=== PATIENT | male | born 1955 | race Caucasian/White ===

== ENCOUNTER 2020-03-01 08:52 | Outpatient (CLI) | payer BC, SELFPAY ==
[2020-03-01 09:21] LABS: Alanine Aminotransferase 23 U/L (4-50); Aspartate Amino Transferase 27 U/L (17-59); Cholesterol 186 mg/dL (0-200); HDL Direct 50 mg/dL; Triglycerides 101 mg/dL (<150)
[2020-03-01 09:37] LABS: LDL Cholesterol Direct 109 mg/dL
== END 2020-03-01 08:53 | disposition home or self-care (01) ==
PROVIDERS: PCP Internal Medicine; Visit Provider Internal Medicine Cardiovascular Disease
DX: E78.5 Hyperlipidemia, unspecified (principal)
CPT/HCPCS: 36415; 80061; 84450; 84460

== ENCOUNTER 2020-09-21 10:31 | Outpatient (CLI) | payer MEDICARE, BC, SELFPAY ==
--- NOTE | ~2020-09-21 | CT_ITS ---
EXAMINATION: CT lung screening DATE: 09/21/2020 11:50 INDICATION: Yearly screening examination. TECHNIQUE: Computed tomography (CT) of the chest was performed without intravenous contrast. The dose -length product was 145.35 mGy-cm. Automated exposure control and iterative reconstruction technique were employed. COMPARISON: CT dated 06/06/2019 FINDINGS: No thoracic lymphadenopathy. There is atherosclerosis of the coronary arteries. Heart size normal. No significant pleural or pericardial effusion. There is gynecomastia. There is a 2 mm pleura l-based right upper lobe nodule, image 41. There is a 2 mm calcified right upper lobe nodule. There i s a 2-3 mm pleural-based right middle lobe nodule, image 73, unchanged. There are calcified nodules i n the right lower lobe and left lower lobe. There is dependent atelectasis/scarring. No endobronchial lesions. No pneumothorax. Mild thoracic spondylosis. Chronic superior endplate compression deformity of T3. IMPRESSION: 1. Lung-RADS category 2: Benign appearance or behavior. Continue annual screening with noncontrast lo w-dose chest CT in 12 months. Reviewed, dictated and finalized at location A. OOD FISHERMAN IMPRESSION: 1. Lung-RADS category 2: Benign appearance or behavior. Continue annual screeni ng with noncontrast low-dose chest CT in 12 months.
== END 2020-09-21 10:32 | disposition home or self-care (01) ==
PROVIDERS: PCP Internal Medicine; Visit Provider Internal Medicine
DX: Z12.2 Encounter for screening for malignant neoplasm of respiratory organs (principal); Z87.891 Personal history of nicotine dependence
CPT/HCPCS: 71271

== ENCOUNTER → 2020-12-04 10:35 | Outpatient (CLI) | payer MEDICARE, BC, SELFPAY ==
--- NOTE | ~2020-12-04 | US_ITS ---
EXAMINATION: US aorta [facility] DATE: 12/04/2020 10:55 INDICATION: Abdominal aortic aneurysm screening. TECHNIQUE: Grayscale, color Doppler, and pulsed Doppler images of the aorta and common iliac arteries were obtained. COMPARISON: CT lumbar spine 03/29/2017 FINDINGS: The aorta is normal in caliber. The right common iliac artery is normal in caliber. The left common i liac artery is normal in caliber. IMPRESSION: 1. No abdominal aortic aneurysm. Reviewed, dictated and finalized at location B.
--- NOTE | ~2020-12-04 | XR_ITS ---
EXAMINATION: XR knee LT 3V DATE: 12/04/2020 11:12 INDICATION: Unspecified osteoarthritis, unspecified site. TECHNIQUE: 3 views of left knee were obtained. COMPARISON: None. FINDINGS: There is a total left knee arthroplasty with patellar resurfacing. Tibia demonstrates 13 de grees posterior angulation with respect to tibial component. There is 2 mm lucency adjacent to the an terior aspect of the femoral component and anterior aspect of the tibial component.. There is a small knee joint effusion. IMPRESSION: 1. Total left knee arthroplasty with lucencies adjacent to the anterior aspects of the femoral and ti bial components, consistent with loosening versus infection. Comparison with postoperative radiograph s is recommended. 2. Small knee joint effusion. Reviewed, dictated and finalized at location B. IMPRESSION: 1. Total left knee arthroplasty with lucencies adjacent to the anterior aspects of the femoral and tibial components, consistent with loosening versus infecti on. Comparison with postoperative radiographs is recommended. 2. Small knee joint effusion.
--- NOTE | ~2020-12-04 | XR_ITS ---
EXAMINATION: XR knee RT 3V DATE: 12/04/2020 11:12 INDICATION: Unspecified osteoarthritis, unspecified site. TECHNIQUE: 3 views of right knee were obtained. COMPARISON: None. FINDINGS: There is a total right knee arthroplasty with patellar resurfacing. Tibia demonstrate 9 deg donn posterior angulation with respect to tibial component. There is 2 mm lucency adjacent to the ant erior aspect of the femoral component and adjacent to the patellar component. No fracture. There is a small knee joint effusion. There are loose bodies in the knee joint. IMPRESSION: 1. Total right knee arthroplasty with areas of lucency adjacent to the anterior aspect of the femoral component and adjacent to the patellar component, consistent with loosening versus infection. Compar miriam with postoperative radiographs is recommended. 2. Small knee joint effusion with loose bodies. Reviewed, dictated and finalized at location B. IMPRESSION: 1. Total right knee arthroplasty with areas of lucency adjacent to the anterior aspect of the femoral component and adjacent to the patellar component, consis tent with loosening versus infection. Comparison with postoperative radiographs is recommended. 2. Small knee joint effusion with loose bodies.
== END ==
PROVIDERS: PCP Internal Medicine; Visit Provider Internal Medicine
DX: M19.90 Unspecified osteoarthritis, unspecified site (principal); M23.41 Loose body in knee, right knee; M25.461 Effusion, right knee; M25.462 Effusion, left knee
CPT/HCPCS: 73562; 76706

== ENCOUNTER 2021-07-26 03:28 | Day surgery (SDC) | payer MEDICARE, BC, SELFPAY ==
[2021-07-25 16:16] VITALS: BMI 31.9
[2021-07-26] VITALS (16 sets, daily range): BP systolic 114–162; BP diastolic 50–67; PULSE 57–73; RESP 14–18; TEMP 36.5–37; O2SAT 95–99; BMI 32.9
[2021-07-26 08:14] LABS: Basophils Absolute Auto 0.1 K/mm3 (0.0-0.1); Basophils Percent Auto 0.5 % (0.2-1.2); Eosinophils Absolute Auto 0.8 K/mm3 (0-0.3); Eosinophils Percent Auto 7.3 % (0-4.4); Hematocrit 35.4 % (42.0-52.0); Hemoglobin 12.3 g/dL (14.0-18.0); Immature Granulocyte Absolute 0.05 K/mm3 (0.00-0.031); Immature Granulocyte Percent A 0.4 % (0-0.5); Lymphocytes Absolute Auto 2.71 K/mm3 (0.9-3.2); Mean Corpuscular HGB Conc 34.7 g/dl (32-36); Mean Corpuscular Hemoglobin 32.1 pg (26-34); Mean Corpuscular Volume 92.4 fl (80-100); Mean Platelet Volume 9.1 fl (7.4-10.4); Monocytes Absolute Auto 1.1 K/mm3 (0.1-0.6); Monocytes Percent Auto 9.4 % (2.6-8.5); Neutrophils Absolute Auto 6.6 K/mm3 (1.3-6.7); Neutrophils Percent Auto 58.4 % (45.5-73.1); Platelet Count Result 374 k/mm3 (150-375); Red Blood Count 3.83 M/mm3 (4.6-6.20); Red Cell Distribution Width 12.8 % (11.5-14.5); White Blood Count 11.3 K/mm3 (4.5-10.0)
[2021-07-26 08:22] LABS: Anion Gap 9 mmol/L (8-16); Blood Urea Nitrogen 24 mg/dL (9-20); Calcium 9.4 mg/dL (8.4-10.2); Carbon Dioxide 24 mmol/L (22-30); Chloride 99 mmol/L (98-107); Estimated CRCL calculation 76 ml/min; Estimated Glomerular Filt Rate > 60; Glucose 108 mg/dL (65-110); Potassium 4.5 mmol/L (3.4-5.0); Sodium 132 mmol/L (137-145)
[2021-07-26 08:23] LABS: INR 0.8; Prothrombin Time 11.5 Seconds (11.1-14.7)
--- NOTE | 2021-07-26 09:21 | WPDMODSED ---
Moderate Sedation Note-Pt Data Patient Data Diagnosis: History of mild coronary artery disease being treated medically recent episode of nocturnal chest pain electrocardiographically abnormal Lexiscan stress test Present Complaint: this is a 66-year-old man with coronary disease with [id number] lesion in a diagonal branch of the LAD identified about 13 years ago. He has been treated medically. Recently there was an episode of nocturnal chest pain that has raise concern. He is having no exertional chest pain. A nuclear Lexiscan stress test was done as an outpatient which was remarkable for some ST segment depression but there were no scintigraphic abnormalities. Procedure to be performed/Plan: Left heart catheterization Allergies Allergy/AdvReac Type Severity Reaction Status Date / Time No Known Allergies Allergy Verified 07/26/21 08:25 NKDA Allergy Mild unkown Uncoded 07/26/21 08:25 Home Medications Medication Instructions Recorded Confirmed Type aspirin 81 mg tablet,delayed 81 mg PO DAILY 11/02/19 07/25/21 History release atorvastatin 40 mg tablet 40 mg PO DAILY #90 tablet 04/24/21 07/25/21 Rx verapamil 240 mg 24 hr 240 mg PO DAILY #90 cap 05/08/21 07/25/21 Rx capsule,extended release lisinopril 40 mg tablet See Rx Instructions .ROUTE 07/10/21 07/25/21 Rx .COMPLEX #90 tablet cholecalciferol (vitamin D3) 50 50 mcg PO DAILY 07/15/21 07/25/21 History mcg (2,000 unit) capsule glucosamine sulfate 500 mg tablet 500 mg PO DAILY 07/15/21 07/25/21 History hydrochlorothiazide See Rx Instructions .ROUTE .COMPLEX 07/25/21 07/25/21 History Current Medications: Active Medications Sodium Chloride (Normal Saline Iv) 500 mls @ 100 mls/hr IV CONT .Q5H CINDY Sedation/Anesthesia: No previous sedation/anesthesia problems (including family history). [facility] Surgical History Surgical History (Updated 05/21/21 @ 11:31 by Tamara Villalpando CMA) History of bilateral knee replacement Social History Social History (Updated 07/15/21 @ 10:12 by Nettie Yanez CNA) Years smoked: 40 Smoking status: Current some day smoker Tobacco type: cigars Second hand tobacco smoke exposure: No Additional smoking assessment comments: Patient no longer smoking cigarettes. Patient reports smoking 1-5 week Alcohol intake: current Drinks per week: 8 Alcohol use details: 4-5 days per week Substance use: never Substance use type: does not use Living arrangements: with family Spiritual care concerns: No Mod Sed Physical Exam Physical Exam Pre Procedural Exam: Normal: Appearance, Neck, Throat, Airway, Lungs, Heart Size, Heart Rate, Heart Rhythm, Neuro Exam and Extremities Hours since solid foods: 12 Hours since liquid intake: 12 Mallampati Classification: class II Internal Medicine - PN: Obj Da Vital Signs Vital Signs: Vital Signs - 24 hr 07/26/21 08:00 Temperature 36.5 C Pulse Rate 60 Respiratory Rate 16 Blood Pressure 139/59 L Pulse Oximetry 95 Meds/Results Medications: Active Medications Generic Name Dose Route Start Last Admin Trade Name Freq PRN Reason Stop Dose Admin Sodium Chloride 500 mls @ 100 mls/hr 07/25/21 16:05 Normal Saline Iv IV CONT .Q5H CINDY Labs CBC & Chem 7: 07/26/21 07:57 07/26/21 07:57 Labs: Laboratory Results - last 24 hr 07/26/21 07/26/21 07/26/21 07:57 07:57 07:57 WBC 11.3 H RBC 3.83 L Hgb 12.3 L Hct 35.4 L MCV 92.4 MCH 32.1 MCHC 34.7 RDW 12.8 Plt Count 374 MPV 9.1 Immature Gran % (Auto) 0.4 Neut % (Auto) 58.4 Lymph % (Auto) 24.0 [place] % (Auto) 9.4 H Eos % (Auto) 7.3 H Baso % (Auto) 0.5 Lymph # (Auto) 2.71 [place] # (Auto) 1.1 H Eos # (Auto) 0.8 H Baso # (Auto) 0.1 Abs Immat Gran (auto) 0.05 H Absolute Neuts (auto) 6.6 Absolute Nucleated RBC 0.0 Nucleated RBC % 0.0 PT 11.5 INR 0.8 Sodium 132 L Potassium 4.5 Chlor
--- NOTE | 2021-07-26 10:08 | WPDCARDPROC ---
Cardiac Cath Procedure Note Date of procedure:: 07/26/21 Performing physician:: Swapnil Sanchez MD Indication:: Coronary artery disease with abnormal stress test Brief clinical history:: this is a 66-year-old man known to have angiographically modest coronary disease that has been treated medically. Recently he had an episode of nonexertional chest pain occurring in a nocturnal fashion. He was seen in the office after this and a nuclear stress test was done which demonstrated ECG changes with the Lexiscan injection but apparently normal appearing perfusion images. In this setting a follow-up angiogram has been recommended. Procedure Procedure performed:: Left ventriculogram coronary angiogram Sedation/Medication given:: fentanyl 50 mg Versed 2 mg case start time 932 case end time 10:00 a.m. sedation provided by Neelima Rosen RN, trained observer Access site:: right femoral artery Estimated blood loss:: 15 cc Procedure note:: patient was brought to the cardiac catheterization lab postabsorptive state where the right femoral triangle was prepped draped usual fashion. Anesthesia was provided with 1% lidocaine infiltrated locally. Using the modified Seldinger technique a 5 Martiniquais sheath was placed into the femoral artery after this left heart catheterization was carried out. A 5 Martiniquais angled pigtail catheter was used to measure left-sided hemodynamics and to inject LV g in the ER AO projection. After this I used a 5 Martiniquais FL4 catheter to attempt engagement of the left coronary artery. This was unsuccessful I then used a 5 Martiniquais FL 3.5 which successfully engaged the vessel for angiography after this I engaged and injected the right coronary artery using a standard 5 Martiniquais JR4 catheter. The cineangiograms were then reviewed the case was terminated. Patient had the sheath removed in the holding area he left the optical laboratory manager with no complications and no evidence of a groin hematoma. Findings:: Hemodynamics: the central aortic pressure was 126 over 54 left ventricle 126/2 end-diastolic pressure 12 the across the aortic valve. Left ventricle: The LV is normal in size all segments contract appropriately the global ejection fraction is visually estimated to be 60% I did not see any regional wall motion abnormalities. The left main, proximal LAD proximal circumflex coronaries are heavily calcified vessels. The left main coronary artery is patent without discrete lesion but is mildly diffusely narrowed approximately 50% stenosis. The left anterior descending is a medium caliber vessel reaching the and 2 around the apex. The proximal LAD at the ostium has stenosis of approximately 60-70%. Just distal to this there is 90-95% stenosis in the proximal LAD. Once again the vessel in this area is significantly calcified. The circumflex is a very large caliber vessel which is dominant to the posterior circulation. There is a very proximal large OM1 branch that has mild ostial disease the remainder of the circumflex despite being calcified is nicely patent the vessel gives rise to the posterolateral vessels and a left posterior descending as well. The right coronary artery is small in caliber non dominant giving rise to right ventricular vessels that are angiographically normal. Conclusion:: 1. Left coronary dominant circulation with heavy calcification of the left main, lad and circumflex arteries. 2. High-grade stenosis in the proximal LAD and moderate to high-grade stenosis in the LAD ostium. 3. Non diseased non dominant RCA 4. preserved left ventricular systolic function 5. revascularization strategy would include high risk PCI of the proximal LAD with heavy calcification there as well as in the left main. The success of such PCI would be enhanced by treating calcium either with Rotablator or shockwave therapy prior to stenting. Swapnil Sanchez MD [facility]
--- NOTE | 2021-07-26 16:45 | SUR.PHASEII ---
DISCHARGE INSTRUCTIONS GIVEN AND REVIEWED W/ PT. AND . QUESTIONS ANSWERED. VOICED UNDERSTANDING OF ALL. CD OF PROCEDURE GIVEN TO PT. TO TAKE TO CONSULTATION APPOINTMENT. DISCHARGED HOME, OUT VIA WC TO 'S WAITING CAR WITH ALL PERSONAL BELONGINGS AND DISCHARGE PACKET AND CD. VOICED NO C/O. NO DISTRESS NOTED.
== END 2021-07-26 16:45 | disposition home or self-care (01) ==
PROVIDERS: PCP Internal Medicine; Visit Provider Specialist
PROC: 4A023N7 Measurement of Cardiac Sampling and Pressure, Left Heart, Percutaneous Approach (ICD-10-PCS; CPT 93452; principal; 2021-07-26 10:30)
DX: I25.10 Atherosclerotic heart disease of native coronary artery without angina pectoris (principal); R94.39 Abnormal result of other cardiovascular function study; R07.9 Chest pain, unspecified; E78.5 Hyperlipidemia, unspecified; I10 Essential (primary) hypertension; G47.30 Sleep apnea, unspecified; Z79.82 Long term (current) use of aspirin; F17.290 Nicotine dependence, other tobacco product, uncomplicated
CPT/HCPCS: 36415; 80048; 85025; 85610; 93458; C1887; C1894; J0461; J1644; J2250; J3010; J7030; J7040

== ENCOUNTER 2021-10-11 08:59 | Outpatient (CLI) | payer MEDICARE, BC, SELFPAY ==
--- NOTE | ~2021-10-11 | CT_ITS ---
EXAMINATION: CT lung screening DATE: 10/11/2021 09:14 INDICATION: Z87.891 - Personal history of nicotine dependence TECHNIQUE: Computed tomography (CT) of the chest was performed without intravenous contrast. Addition al 3D reconstructions utilizing coronal maximum intensity projection (MIP) were performed. Automated exposure control and iterative reconstruction technique were employed. The dose-length product was 17 6.47 mGy-cm. COMPARISON: 09/21/2020 FINDINGS: A few unchanged small calcified nodules in the right upper and lower lobes, left lower lobe and lingu la along with calcified right hilar lymph nodes consistent with old granulomatous disease. No other n ew or enlarging pulmonary nodules. No new or enlarging pulmonary nodules identified. Mild discoid ate lectasis at the lingula. No pneumonia, pulmonary edema or pleural effusion. Heart size is normal. Ath erosclerotic coronary artery calcification. Small sliding-type hiatal hernia. There are bridging oste ophytes at multiple levels in the spine, consistent with diffuse idiopathic skeletal hyperostosis (DI SH). IMPRESSION: 1. Lung-RADS category 2: Benign appearance or behavior. Continue annual screening with noncontrast lo w-dose chest CT in 12 months. Reviewed, dictated and finalized at location A. ETING UNDERWRITER IMPRESSION: 1. Lung-RADS category 2: Benign appearance or behavior. Continue annual screeni ng with noncontrast low-dose chest CT in 12 months.
== END 2021-10-11 09:00 | disposition home or self-care (01) ==
LOC: ANHIMG 09:03
PROVIDERS: PCP Internal Medicine; Visit Provider Internal Medicine
DX: Z87.891 Personal history of nicotine dependence (principal)
CPT/HCPCS: 71271

== ENCOUNTER 2022-01-06 08:38 | Outpatient (CLI) | payer MEDICARE, BC, SELFPAY ==
[2022-01-06 08:54] LABS: Hematocrit 37.8 % (42.0-52.0); Hemoglobin 12.6 g/dL (14.0-18.0); Mean Corpuscular HGB Conc 33.3 g/dl (32-36); Mean Corpuscular Hemoglobin 31.3 pg (26-34); Mean Platelet Volume 8.7 fl (7.4-10.4); Platelet Count Result 450 k/mm3 (150-375); Red Blood Count 4.02 M/mm3 (4.6-6.20); White Blood Count 7.5 K/mm3 (4.5-10.0)
[2022-01-06 09:07] LABS: Alanine Aminotransferase 19 U/L (6-50); Albumin Level 4.5 g/dL (3.5-5.1); Alkaline Phosphatase 66 U/L (38-126); Anion Gap 6 mmol/L (8-16); Aspartate Amino Transferase 25 U/L (17-59); Bilirubin,Total 0.4 mg/dL (0.2-1.3); Blood Urea Nitrogen 18 mg/dL (9-20); Calcium 9.4 mg/dL (8.4-10.2); Carbon Dioxide 26 mmol/L (22-30); Chloride 101 mmol/L (98-107); Estimated Glomerular Filt Rate > 60; Glucose 109 mg/dL (65-110); Potassium 4.8 mmol/L (3.4-5.0); Sodium 133 mmol/L (137-145)
[2022-01-06 09:34] LABS: Thyroid Stimulating Hormone 0.548 uIU/mL (0.465-4.680)
== END 2022-01-06 08:39 | disposition home or self-care (01) ==
LOC: ANHLAB 08:39
PROVIDERS: PCP Internal Medicine; Visit Provider Internal Medicine
DX: R42 Dizziness and giddiness (principal); I10 Essential (primary) hypertension; E78.5 Hyperlipidemia, unspecified; Z12.5 Encounter for screening for malignant neoplasm of prostate
CPT/HCPCS: 36415; 80053; 84153; 84443; 85027; G0103

== ENCOUNTER 2022-03-17 08:50 | Outpatient (CLI) | payer MEDICARE, BC, SELFPAY ==
[2022-03-17 09:10] LABS: Basophils Absolute Auto 0.1 K/mm3 (0.0-0.1); Basophils Percent Auto 0.7 % (0.2-1.2); Eosinophils Absolute Auto 0.7 K/mm3 (0-0.3); Eosinophils Percent Auto 8.9 % (0-4.4); Hematocrit 33.5 % (42.0-52.0); Hemoglobin 11.2 g/dL (14.0-18.0); Immature Granulocyte Absolute 0.05 K/mm3 (0.00-0.031); Immature Granulocyte Percent A 0.6 % (0-0.5); Lymphocytes Absolute Auto 2.36 K/mm3 (0.9-3.2); Lymphocytes Percent Auto 29.3 % (18.3-44.2); Mean Corpuscular HGB Conc 33.4 g/dl (32-36); Mean Corpuscular Hemoglobin 30.9 pg (26-34); Mean Corpuscular Volume 92.5 fl (80-100); Monocytes Absolute Auto 0.7 K/mm3 (0.1-0.6); Monocytes Percent Auto 8.6 % (2.6-8.5); Neutrophils Absolute Auto 4.2 K/mm3 (1.3-6.7); Neutrophils Percent Auto 51.9 % (45.5-73.1); Platelet Count Result 392 k/mm3 (150-375); Red Blood Count 3.62 M/mm3 (4.6-6.20); Red Cell Distribution Width 13.9 % (11.5-14.5); White Blood Count 8.1 K/mm3 (4.5-10.0)
== END 2022-03-17 08:51 | disposition home or self-care (01) ==
PROVIDERS: PCP Internal Medicine; Visit Provider Internal Medicine Hematology & Oncology
DX: D75.838 Other thrombocytosis (principal)
CPT/HCPCS: 36415; 85025

== ENCOUNTER 2022-06-17 07:32 | Outpatient (CLI) | payer MEDICARE, BC, SELFPAY ==
--- NOTE | 2022-07-14 10:32 | WPDSLEEPSTUD ---
Sleep Study Date of Study: 06/17/22 Ordering Provider: LAURE Trinidad Interpreting Physician: Zulema Berry MD Sleep Study Type: ASV Height: 1.78 m Weight: 103.419 kg Body Mass Index: 32.7 Neck Circumference (inches): 18 [place]: 4 Reason for Sleep Study Long history of central sleep apnea, currently using ASV with pressures EPAP 9, minimum pressure support 4 cm, maximum pressure support 15 cm. His AHI on May 20, 2022 download was 6.8. * 03/29/2014- Split-night polysomnogram; severe central sleep apnea, inadequate titration with CPAP/BiPAP was noted without achievement of optimum pressure. * 04/13/2014- ASV Titration - adequate titration of ASV to a final pressure of Imax pressure support of 15 cm of water, I minimum pressure support of 4 cm of water with end-expiratory pressure of 9 cm of water * 12/2019 echo from [facility] - EF 65%, mild MVR. Since this test was performed, the patient had 3 vessel CABG on Jun 21, 2022 at [facility]. Sleep History Vidal Murray is a 66-year-old man with central sleep apnea on treatment using ASV since 2013. he has loud snoring. He currently states he is on a BiPAP machine. He does not awaken from sleep feeling short of breath. He occasionally awakens at night with heartburn, belching or coughing. He frequently snores and it is always loud enough that others complain about it. He frequently has difficulty sleeping when he has a cold. He does not wake up gasping for breath at night. Constantly has breathing problems at night observed by others. He rarely sweats excessively at night, rarely notices his heart pounding or beating irregularly at night and rarely falls asleep during the day. He does not fall asleep involuntarily or while driving. He does not have loss of muscle tone with strong emotion. He does not have daytime difficulties due to excessive sleepiness. Does not feel paralyzed on waking or falling asleep nor does he have vivid dreamlike scenes on waking or falling asleep. He does not feel afraid to go to sleep. He does not have nightmares. He occasionally remembers his dreams. He constantly has racing thoughts. He does not feel sad or depressed. He frequently has anxiety. He does not have muscular tension, does not notice parts of his body jerking and does not kick at night. He occasionally has crawling and aching feelings in his legs, occasionally has leg pain during the night. He does not have morning jaw pain. He does not grind his teeth during sleep. He is not bothered by pain during the day or awakened by pain at night. He frequently wakes up feeling stiff in the morning, occasionally wakes up with sore achy muscles and pain in the neck and spine. He has fatigue. Normal bedtime is between 9:00 p.m. and 1:00 a.m., taking a variable amount of time to fall asleep. He typically wakes twice during the night to urinate. He wakes the morning sometime between 6 and 7:00 a.m.. His weekend schedule is the same. He estimates getting anywhere between 6 hours and 10 hours of sleep at night. He takes naps during the day. A short nap is not refreshing. He awakens feeling refreshed most days. Habits: Quit tobacco 2 years ago. No caffeine. He drinks alcohol 3 or more servings a day. No recreational drugs. [facility]LY [facility] Past Medical History Medical History Central sleep apnea Hypertension Obesity (BMI 30-39.9) Personal history of nicotine dependence Vertigo Surgical History Surgical History History of bilateral knee replacement History of heart artery stent Knee joint replacement status Family History Family History Father Heart disease Bladder cancer Mother Heart disease Social History Social History Social History: Smoke cigars,
[2022-07-14 12:05] VITALS: BMI 32.7
== END 2022-06-18 06:15 | disposition home or self-care (01) ==
PROVIDERS: PCP Internal Medicine; Visit Provider Physician Assistant
DX: G47.31 Primary central sleep apnea (principal); G47.61 Periodic limb movement disorder
CPT/HCPCS: 95811

== ENCOUNTER 2022-07-24 13:41 | Outpatient (CLI) | payer MEDICARE, BC, SELFPAY ==
[2022-07-24 13:53] LABS: Basophils Absolute Auto 0.1 K/mm3 (0.0-0.1); Basophils Percent Auto 1.2 % (0.2-1.2); Eosinophils Absolute Auto 1.8 K/mm3 (0-0.3); Eosinophils Percent Auto 15.5 % (0-4.4); Hematocrit 31.7 % (42.0-52.0); Hemoglobin 10.1 g/dL (14.0-18.0); Immature Granulocyte Absolute 0.03 K/mm3 (0.00-0.031); Immature Granulocyte Percent A 0.3 % (0-0.5); Lymphocytes Absolute Auto 2.05 K/mm3 (0.9-3.2); Lymphocytes Percent Auto 17.9 % (18.3-44.2); Mean Corpuscular HGB Conc 31.9 g/dl (32-36); Mean Corpuscular Hemoglobin 30.5 pg (26-34); Mean Corpuscular Volume 95.8 fl (80-100); Mean Platelet Volume 8.9 fl (7.4-10.4); Monocytes Absolute Auto 0.7 K/mm3 (0.1-0.6); Monocytes Percent Auto 6.3 % (2.6-8.5); Neutrophils Absolute Auto 6.8 K/mm3 (1.3-6.7); Neutrophils Percent Auto 58.8 % (45.5-73.1); Platelet Count Result 527 k/mm3 (150-375); Red Blood Count 3.31 M/mm3 (4.6-6.20); Red Cell Distribution Width 13.7 % (11.5-14.5); White Blood Count 11.5 K/mm3 (4.5-10.0)
== END 2022-07-24 13:42 | disposition home or self-care (01) ==
LOC: ANHLAB 13:43
PROVIDERS: PCP Internal Medicine; Visit Provider Internal Medicine Hematology & Oncology
DX: D75.838 Other thrombocytosis (principal)
CPT/HCPCS: 36415; 85025

== ENCOUNTER 2022-10-20 08:50 | Outpatient (CLI) | payer MEDICARE, BC, SELFPAY ==
[2022-10-20 09:10] LABS: Basophils Absolute Auto 0.1 K/mm3 (0.0-0.1); Basophils Percent Auto 0.6 % (0.2-1.2); Eosinophils Absolute Auto 0.4 K/mm3 (0-0.3); Eosinophils Percent Auto 4.6 % (0-4.4); Hematocrit 39.3 % (42.0-52.0); Hemoglobin 12.6 g/dL (14.0-18.0); Immature Granulocyte Absolute 0.04 K/mm3 (0.00-0.031); Immature Granulocyte Percent A 0.5 % (0-0.5); Lymphocytes Absolute Auto 2.53 K/mm3 (0.9-3.2); Lymphocytes Percent Auto 28.8 % (18.3-44.2); Mean Corpuscular HGB Conc 32.1 g/dl (32-36); Mean Corpuscular Hemoglobin 30.7 pg (26-34); Mean Corpuscular Volume 95.9 fl (80-100); Mean Platelet Volume 9.2 fl (7.4-10.4); Monocytes Absolute Auto 0.7 K/mm3 (0.1-0.6); Monocytes Percent Auto 7.8 % (2.6-8.5); Neutrophils Absolute Auto 5.1 K/mm3 (1.3-6.7); Neutrophils Percent Auto 57.7 % (45.5-73.1); Platelet Count Result 353 k/mm3 (150-375); Red Cell Distribution Width 16.1 % (11.5-14.5); White Blood Count 8.8 K/mm3 (4.5-10.0)
[2022-10-20 11:54] LABS: Anion Gap 8 mmol/L (8-16); Blood Urea Nitrogen 21 mg/dL (9-20); Calcium 9.5 mg/dL (8.4-10.2); Carbon Dioxide 26 mmol/L (22-30); Chloride 105 mmol/L (98-107); Estimated Glomerular Filt Rate > 60; Glucose 110 mg/dL (65-110); Potassium 4.3 mmol/L (3.4-5.0); Sodium 139 mmol/L (137-145)
[2022-10-20 13:49] LABS: Folic Acid 17.6 ng/mL (2.76->20)
[2022-10-21 10:19] LABS: Iron 80 ug/dL (49-181)
[2022-10-21 10:29] LABS: Percent Iron Saturation 22 % (20-50)
== END 2022-10-20 08:51 | disposition home or self-care (01) ==
LOC: ANHLAB 08:52
PROVIDERS: PCP Internal Medicine; Visit Provider Internal Medicine Hematology & Oncology
DX: D75.838 Other thrombocytosis (principal); D64.9 Anemia, unspecified
CPT/HCPCS: 36415; 80048; 82607; 82746; 83540; 83550; 85025

== ENCOUNTER 2022-10-30 09:45 | Outpatient (RCR) | payer MEDICARE, BC, SELFPAY ==
[2022-10-28 11:13] VITALS: PULSE 64
== END 2022-11-03 08:31 | disposition home or self-care (01) ==
LOC: ANHCPREHAB 09:45
PROVIDERS: PCP Internal Medicine; Visit Provider Internal Medicine Cardiovascular Disease
DX: Z95.1 Presence of aortocoronary bypass graft (principal)
CPT/HCPCS: 93798

== ENCOUNTER 2023-01-26 13:26 | Outpatient (CLI) | payer MEDICARE, BC, SELFPAY ==
[2023-01-26 13:55] LABS: Basophils Absolute Auto 0.1 K/mm3 (0.0-0.1); Basophils Percent Auto 0.8 % (0.2-1.2); Eosinophils Absolute Auto 0.4 K/mm3 (0-0.3); Eosinophils Percent Auto 4.8 % (0-4.4); Hematocrit 37.5 % (42.0-52.0); Hemoglobin 12.6 g/dL (14.0-18.0); Immature Granulocyte Absolute 0.05 K/mm3 (0.00-0.031); Immature Granulocyte Percent A 0.6 % (0-0.5); Lymphocytes Absolute Auto 1.74 K/mm3 (0.9-3.2); Lymphocytes Percent Auto 20.7 % (18.3-44.2); Mean Corpuscular HGB Conc 33.6 g/dl (32-36); Mean Corpuscular Hemoglobin 32.7 pg (26-34); Mean Corpuscular Volume 97.4 fl (80-100); Mean Platelet Volume 8.9 fl (7.4-10.4); Monocytes Absolute Auto 0.9 K/mm3 (0.1-0.6); Monocytes Percent Auto 10.1 % (2.6-8.5); Neutrophils Absolute Auto 5.3 K/mm3 (1.3-6.7); Platelet Count Result 394 k/mm3 (150-375); Red Blood Count 3.85 M/mm3 (4.6-6.20); Red Cell Distribution Width 14.2 % (11.5-14.5); White Blood Count 8.4 K/mm3 (4.5-10.0)
[2023-01-26 16:46] LABS: Iron 86 ug/dL (49-181)
[2023-01-26 16:48] LABS: Alanine Aminotransferase 21 U/L (6-50); Albumin Level 4.1 g/dL (3.5-5.1); Alkaline Phosphatase 71 U/L (38-126); Anion Gap 6 mmol/L (8-16); Aspartate Amino Transferase 22 U/L (17-59); Bilirubin,Total 0.5 mg/dL (0.2-1.3); Blood Urea Nitrogen 27 mg/dL (9-20); Calcium 9.5 mg/dL (8.4-10.2); Carbon Dioxide 24 mmol/L (22-30); Chloride 105 mmol/L (98-107); Cholesterol 109 mg/dL (0-200); Estimated Glomerular Filt Rate > 60; Glucose 88 mg/dL (65-110); HDL Direct 50 mg/dL; Potassium 5.7 mmol/L (3.4-5.0); Sodium 135 mmol/L (137-145); Triglycerides 93 mg/dL (<150)
[2023-01-26 17:03] LABS: LDL Cholesterol Direct 49 mg/dL
[2023-01-26 17:11] LABS: Percent Iron Saturation 24 % (20-50)
[2023-01-26 17:14] LABS: Vitamin D 25 Hydroxy 41.3 ng/mL
[2023-01-26 23:35] LABS: Folic Acid 13.3 ng/mL (2.76->20)
== END 2023-01-26 13:27 | disposition home or self-care (01) ==
LOC: ANHLAB 13:28
PROVIDERS: Internal Medicine; PCP Family Medicine; Visit Provider Internal Medicine Hematology & Oncology
DX: D64.9 Anemia, unspecified (principal); I25.10 Atherosclerotic heart disease of native coronary artery without angina pectoris; E78.5 Hyperlipidemia, unspecified; E55.9 Vitamin D deficiency, unspecified; I10 Essential (primary) hypertension
CPT/HCPCS: 36415; 80053; 80061; 82306; 82607; 82728; 82746; 83540; 83550; 85025

== ENCOUNTER 2023-06-12 09:53 | Outpatient (CLI) | payer MEDICARE, BC, SELFPAY ==
[2023-06-12 10:16] LABS: Basophils Absolute Auto 0.1 K/mm3 (0.0-0.1); Basophils Percent Auto 0.7 % (0.2-1.2); Eosinophils Absolute Auto 0.6 K/mm3 (0-0.3); Eosinophils Percent Auto 7.7 % (0-4.4); Hematocrit 39.8 % (42.0-52.0); Hemoglobin 13.1 g/dL (14.0-18.0); Immature Granulocyte Absolute 0.05 K/mm3 (0.00-0.031); Immature Granulocyte Percent A 0.7 % (0-0.5); Lymphocytes Absolute Auto 1.83 K/mm3 (0.9-3.2); Lymphocytes Percent Auto 23.8 % (18.3-44.2); Mean Corpuscular HGB Conc 32.9 g/dl (32-36); Mean Corpuscular Hemoglobin 32.6 pg (26-34); Monocytes Absolute Auto 0.8 K/mm3 (0.1-0.6); Monocytes Percent Auto 9.8 % (2.6-8.5); Neutrophils Absolute Auto 4.4 K/mm3 (1.3-6.7); Neutrophils Percent Auto 57.3 % (45.5-73.1); Platelet Count Result 374 k/mm3 (150-375); Red Blood Count 4.02 M/mm3 (4.6-6.20); Red Cell Distribution Width 13.6 % (11.5-14.5); White Blood Count 7.7 K/mm3 (4.5-10.0)
[2023-06-12 10:29] LABS: Alanine Aminotransferase 22 U/L (6-50); Albumin Level 4.5 g/dL (3.5-5.1); Alkaline Phosphatase 53 U/L (38-126); Anion Gap 7 mmol/L (8-16); Aspartate Amino Transferase 26 U/L (17-59); Bilirubin,Total 0.7 mg/dL (0.2-1.3); Blood Urea Nitrogen 32 mg/dL (9-20); Calcium 9.7 mg/dL (8.4-10.2); Carbon Dioxide 24 mmol/L (22-30); Chloride 103 mmol/L (98-107); Estimated Glomerular Filt Rate > 60; Glucose 109 mg/dL (65-110); Potassium 4.8 mmol/L (3.4-5.0); Sodium 134 mmol/L (137-145)
== END 2023-06-12 09:54 | disposition home or self-care (01) ==
PROVIDERS: PCP Family Medicine; Visit Provider Internal Medicine Hematology & Oncology
DX: D64.9 Anemia, unspecified (principal)
CPT/HCPCS: 36415; 80053; 85025

== ENCOUNTER 2023-07-02 10:44 | Outpatient (CLI) | payer MEDICARE, BC, SELFPAY ==
[2023-07-02 11:43] LABS: Cholesterol 111 mg/dL (0-200); HDL Direct 49 mg/dL; Triglycerides 59 mg/dL (<150)
[2023-07-02 11:54] LABS: LDL Cholesterol Direct 51 mg/dL
== END 2023-07-02 10:45 | disposition home or self-care (01) ==
PROVIDERS: PCP Family Medicine; Visit Provider Internal Medicine Cardiovascular Disease
DX: E78.5 Hyperlipidemia, unspecified (principal)
CPT/HCPCS: 36415; 80061

== ENCOUNTER 2023-10-06 09:03 | Outpatient (CLI) | payer MEDICARE, SELFPAY ==
--- NOTE | ~2023-10-06 | CT_ITS ---
CT Scan of the Chest without Contrast: Clinical Indication: Lung cancer screening, personal history of nicotine dependence Technique: Contiguous sections were acquired throughout the chest without intravenous contrast. Dose reduction technique was used on this scan by utilizing automated exposure control and iterative recon struction technique. The dose-length product (DLP) was 196.31 mGy-cm. COMPARISON: 10/11/2021 Findings: There is no evidence of any significant mediastinal, hilar or axillary lymphadenopathy. There is evid ence of prior presumed CABG. There is no evidence of pleural or pericardial effusion. 2 mm right middle lobe pulmonary nodule noted. Calcified left upper lobe granuloma noted. Images through the upper abdomen reveal no abnormalities. Impression: Lung RADS 2: Benign appearance. 12 month follow-up screening CT advised. Reviewed, dictated and finalized at [facility]. ICAL INTEGRATION PRACTITIONER Impression: Lung RADS 2: Benign appearance. 12 month follow-up screening CT advised.
== END 2023-10-06 09:04 | disposition home or self-care (01) ==
LOC: ANHIMG 09:04
PROVIDERS: PCP Family Medicine; Visit Provider Family Medicine
DX: Z12.2 Encounter for screening for malignant neoplasm of respiratory organs (principal); Z87.891 Personal history of nicotine dependence
CPT/HCPCS: 71271

== ENCOUNTER 2023-11-05 00:51 | Day surgery (SDC) | payer MEDICARE, SELFPAY ==
[2023-10-29 09:00] VITALS: BMI 31.6
--- NOTE | 2023-10-29 09:21 | PC.NURSE ---
Spoke with PATIENT regarding medication BRILINTA. Pt. verbalizes understanding that the last dose of BRILINTA is to be taken on 10/31/2023 and the Endoscopist will instruct them when to restart after the procedure.
--- NOTE | 2023-11-03 09:23 | SUR.PREOP ---
Patient called regarding upcoming procedure. Reviewed preop instructions, appointment times, and procedure prep.
[2023-11-05 07:44] VITALS: BP 135/63; PULSE 61; RESP 18; TEMP 36.4; O2SAT 99
[2023-11-05] MEDS: LACTATED RINGERS 1,000 ML 150 ML IV CONT (07:52)
--- NOTE | 2023-11-05 08:44 | PM.HPGS ---
History of Present Illness History of Present Illness Consent: Risks, benefits, and alternatives have been discussed and questions answered. Patient agrees to proceed with procedure. Chief complaint: neoplasm screening Narrative: Vidal Murray is a 68 year old male here for screening colonoscopy, last one 2018 Review of Systems Review of Systems: All systems reviewed & are unremarkable except as noted in HPI and below PMFSH Past Medical History Medical History Central sleep apnea Hypertension Obesity (BMI 30-39.9) Personal history of nicotine dependence Vertigo Surgical History Surgical History History of bilateral knee replacement History of heart artery stent History of open heart surgery Knee joint replacement status Family History Family History Father Bladder cancer Heart disease Hx of CABG Mother Heart disease Hx of CABG Social History Social History Social History: Smoke cigars, not often Smoking packs per day: 1 Smoking cigarettes per day: 20.0 Years smoked: 35 Smoking pack-years: 35.00 Smoking status: Former smoker Tobacco type: cigarettes Second hand tobacco smoke exposure: No Additional smoking assessment comments: Not currently smoking cigs, occasional cigars Alcohol intake: current Drinks per week: 12 Alcohol use details: beers Substance use: never Substance use type: does not use Lack of Transportation: No Lack of Food: Never True Current Housing: I Have Housing Concerned About Future Housing: No Difficulty Paying Gas/Electric Bills: No Difficulty Paying for Meds: No Currently Unemployed: No Education: Associate Degree Difficulty w/ Childcare or Family Care: No Living arrangements: with family Spiritual care concerns: No Meds Home Medications and Allergies Home Medications Medication Instructions Recorded Confirmed Type aspirin 81 mg tablet,delayed 81 mg PO DAILY 11/02/19 10/29/23 History release (Adult Aspirin Regimen) cholecalciferol (vitamin D3) 50 50 mcg PO DAILY 07/15/21 10/29/23 History mcg (2,000 unit) capsule metoprolol tartrate 25 mg tablet 12.5 mg PO BID 07/25/22 11/05/23 History ferrous sulfate 325 mg (65 mg 325 mg PO DAILY 02/02/23 10/29/23 History iron) tablet lisinopril 40 mg tablet 40 mg PO DAILY 02/02/23 10/29/23 History vitamin B complex (B 1 tablet PO DAILY 02/02/23 10/29/23 History Complex-Vitamin B12 tablet) ascorbate calcium (vitamin C) 500 500 mg PO DAILY 09/17/23 10/29/23 History mg tablet ticagrelor 60 mg tablet (Brilinta) 60 mg PO BID 09/17/23 11/05/23 History evolocumab 140 mg/mL subcutaneous 140 mg subcut .q2w 10/27/23 10/29/23 History pen injector (Repatha SureClick) Allergies Allergy/AdvReac Type Severity Reaction Status Date / Time Nlmagfx-TXA-AvT Reductase Allergy Intermediate Muscle Pain Verified 11/05/23 07:42 Inhibitor Vital Signs Vital Signs - 24 hr 11/05/23 07:44 Temperature 97.5 F L Pulse Rate 61 Respiratory Rate 18 Blood Pressure 135/63 Pulse Oximetry 99 Oxygen Delivery Room Air Exam Const: General: comfortable and no acute distress HENMT: Face/Nose/Sinus: Normal nares present Eyes: General: appearance normal, both eyes and all related structures Neck: Neck: no JVD Resp: Auscultation: clear to auscultation bilaterally Cardio: Rate: regular rate Rhythm: regular rhythm GI: Inspection: non-distended GI Palp: Yes Soft to palpation Skin: General skin exam: normal color Neuro: General: gait normal Speech: normal speech Extrem: General: normal to inspection Psych: Mental Status: mental status grossly normal Assessment and Plan Assessment and plan (1) Colon cancer screening: Code(s): Z12.11 - Encoun
[2023-11-05 09:00] VITALS: BP 99/49; PULSE 54; RESP 15; O2SAT 100
[2023-11-05 09:10] VITALS: BP 96/49; PULSE 56; RESP 15; O2SAT 100
[2023-11-05 09:20] VITALS: BP 125/49; PULSE 54; RESP 20; O2SAT 100
--- NOTE | 2023-11-09 14:00 | WPDANESEPPF ---
Anes - Initial Pre Proc Eval Procedure: Operation Date: 11/05/23 09:00 Proposed Procedures p Screening Colonoscopy - Mook Bray MD Date/Time: 11/09/23 14:00 Surgeon: Mook Bray MD Pre Op Diagnosis: neoplasm screening Patient Data Age: 68 Gender: M Height: 1.78 m Weight: 99 kg Last Vital Signs Temp 97.5 F L 11/05/23 07:44 Pulse 54 L 11/05/23 09:20 Resp 20 11/05/23 09:20 BP 125/49 L 11/05/23 09:20 Pulse Ox 100 11/05/23 09:20 O2 Del Method Room Air 11/05/23 09:20 Allergies Allergy/AdvReac Type Severity Reaction Status Date / Time Nhnsnqb-DOE-PcO Reductase Allergy Intermediate Muscle Pain Verified 11/05/23 07:42 Inhibitor Home Medications Medication Instructions Recorded Confirmed Type aspirin 81 mg tablet,delayed 81 mg PO DAILY 11/02/19 10/29/23 History release (Adult Aspirin Regimen) cholecalciferol (vitamin D3) 50 50 mcg PO DAILY 07/15/21 10/29/23 History mcg (2,000 unit) capsule metoprolol tartrate 25 mg tablet 12.5 mg PO BID 07/25/22 11/05/23 History ferrous sulfate 325 mg (65 mg 325 mg PO DAILY 02/02/23 10/29/23 History iron) tablet lisinopril 40 mg tablet 40 mg PO DAILY 02/02/23 10/29/23 History vitamin B complex (B 1 tablet PO DAILY 02/02/23 10/29/23 History Complex-Vitamin B12 tablet) ascorbate calcium (vitamin C) 500 500 mg PO DAILY 09/17/23 10/29/23 History mg tablet ticagrelor 60 mg tablet (Brilinta) 60 mg PO BID 09/17/23 11/05/23 History evolocumab 140 mg/mL subcutaneous 140 mg subcut .q2w 10/27/23 10/29/23 History pen injector (Repatha SureClick) Patient hx anesthesia problems: none Family hx anesthesia problems: none Results Review: All pre-operative results and documents have been reviewed as part of the pre-operative evaluation. [facility] Past Medical History Medical History Central sleep apnea Hypertension Obesity (BMI 30-39.9) Personal history of nicotine dependence Vertigo Surgical History Surgical History History of bilateral knee replacement History of heart artery stent History of open heart surgery Knee joint replacement status Family History Family History Father Bladder cancer Heart disease Hx of CABG Mother Heart disease Hx of CABG Social History Social History Social History: Smoke cigars, not often Smoking packs per day: 1 Smoking cigarettes per day: 20.0 Years smoked: 35 Smoking pack-years: 35.00 Smoking status: Former smoker Tobacco type: cigarettes Second hand tobacco smoke exposure: No Additional smoking assessment comments: Not currently smoking cigs, occasional cigars Alcohol intake: current Drinks per week: 12 Alcohol use details: beers Substance use: never Substance use type: does not use Lack of Transportation: No Lack of Food: Never True Current Housing: I Have Housing Concerned About Future Housing: No Difficulty Paying Gas/Electric Bills: No Difficulty Paying for Meds: No Currently Unemployed: No Education: Associate Degree Difficulty w/ Childcare or Family Care: No Living arrangements: with family Spiritual care concerns: No Anes - Eval Final PreProcedure Day of Procedure 11/09/23 14:00 Patient weight: obese Heart: regular rate and rhythm Lungs: clear to auscultation Airway: Mallampati scale class II Neurological: alert and oriented Last oral intake: >/= 8 hours ASA classification: III Emergent: no Anesthetic plan: proceed Anesthesia type and monitoring: general GIVS and standard monitoring Results Review: All pre-operative results and documents have been reviewed as part of the pre-operative evaluation. Informed Consent: The patient's anesthetic plan and its attendant risks an
== END 2023-11-05 09:24 | disposition home or self-care (01) ==
PROVIDERS: PCP Family Medicine; Visit Provider Internal Medicine Gastroenterology
PROC: 0DJD8ZZ Inspection of Lower Intestinal Tract, Via Natural or Artificial Opening Endoscopic (ICD-10-PCS; CPT 45378; principal; 2023-11-05 09:00)
DX: Z12.11 Encounter for screening for malignant neoplasm of colon (principal); K64.8 Other hemorrhoids; K57.30 Diverticulosis of large intestine without perforation or abscess without bleeding; I10 Essential (primary) hypertension; G47.31 Primary central sleep apnea; E66.9 Obesity, unspecified; Z68.31 Body mass index [BMI] 31.0-31.9, adult; Z79.82 Long term (current) use of aspirin; Z79.02 Long term (current) use of antithrombotics/antiplatelets; Z79.85 Long-term (current) use of injectable non-insulin antidiabetic drugs; Z98.890 Other specified postprocedural states; Z95.5 Presence of coronary angioplasty implant and graft; Z87.891 Personal history of nicotine dependence; Z80.52 Family history of malignant neoplasm of bladder; Z82.49 Family history of ischemic heart disease and other diseases of the circulatory system
CPT/HCPCS: G0105; J2704; J7120

== ENCOUNTER 2024-09-21 12:30 | Outpatient (CLI) | payer MEDICARE, SELFPAY ==
[2024-09-21 12:57] LABS: CRP 0.5 mg/dL (<1.0)
[2024-09-21 13:03] LABS: Erythrocyte Sedimentation Rate 25 mm/hr (0-20)
== END 2024-09-21 12:31 | disposition home or self-care (01) ==
PROVIDERS: PCP Family Medicine; Visit Provider Orthopaedic Surgery
DX: T84.018A Broken internal joint prosthesis, other site, initial encounter (principal); Z96.659 Presence of unspecified artificial knee joint
CPT/HCPCS: 36415; 85652; 86140

== ENCOUNTER 2024-09-23 11:09 | Outpatient (NON) | payer MEDICARE, SELFPAY ==
--- OUTSIDE RECORDS SUMMARY | 2024-09-23 11:48 | XMS_ITS | Patient Health Summary ---
Author Organization [facility] Address [address] [place] [address] Care Team Providers Care Management Technician Name Role Phone Unavailable Primary Care Provider Unavailabl e Note from [facility],non-owned Affiliates and Associated Physician Practices is amultiple site organization consisting of ambulatory clinics and hospital sitesin [place], [place], [place] and [place]. This disclosure is being madepursuant to the Care Everywhere program and may not contain all information available regarding this patient. Last updated 18.[facility] Allergies No known active allergies Medications * Be aware that medications may not be up to date on this document. Alwaysverify current medications with the patient. * aspirin EC (ECOTRIN) 81 MG tablet Take 81 mg by mouth at bedtime * atorvastatin (LIPITOR) 40 MG tablet(Started 07/24/2021) Take 40 mg by mouth once daily * hydroCHLOROthiazide (HYDRODIURIL) 25 MG tablet(Started 10/06/2021) Take 25 mg by mouth once daily * lisinopril (PRINIVIL; ZESTRIL) 40 MG tablet(Started 10/06/2021) Take 40 mg by mouth at bedtime * pantoprazole EC (PROTONIX) 40 MG tablet(Started 07/26/2021) Take 40 mg by mouth at bedtime * pitavastatin (LIVALO) 1 MG tablet(Started 10/22/2021) Take 1 tablet by mouth once daily * verapamil SR 24hr (VERELAN) 240 MG capsule(Started 11/19/2021) Take 240 mg by mouth once daily * NEXLETOL 180 MG TABS(Started 01/31/2022) * BRILINTA 90 MG tablet(Started 01/17/2022) Active Problems Problem Noted Date Diagnosed Date Chronic anemia 03/17/2022 Reactive thrombocytosis 02/27/2022 Presence of right artificial knee joint 02/06/20 Coronary artery disease invo lving [place] coronary artery of [place] heart without angina pectoris 10/28/2019 Essential hypertension 10/28/2019 Social History Tobacco Use Types Packs/Day Years Used Date Smoking Tobacco: Never Smokeless Tobacco: Never Sex and Gender Information Value Date Recorded Sex Assigned at Not on file Gender Identity Not on file Sexual Orientation Not on file Last Filed Vital Signs Vital Sign Reading Time Taken Comments Blood Pressure - - Pulse - - Temperature - - Respiratory Rate - - Oxygen Saturation - - Inhaled Oxygen Concentration - - Weight 102.1 kg (225 lb) 12/03/2021 12:34 PM CDT Height 177.8 cm (5' 10 ) 12/03/2021 12:34 PM CDT Body Mass Index 32.28 12/03/2021 12:34 PM CDT Procedures * XR KNEE RIGHT 3VW(Performed 09/22/2022) Performed for Presence of right artificial knee joint * NM BONE SCAN 3 PHASE(Performed 03/05/2022) Performed for Status post bilateral knee replacements * DIFFERENTIAL MANUAL FLUID(Performed 02/03/2022) Performed for Presence of right artificial knee joint, Chronic pain of right knee * CELL COUNT W DIFFERENTIAL FLUID(Performed 02/03/2022) Performed for Presence of right artificial knee joint, Chronic pain of right knee * CULTURE FLUID+GRAM STAIN(Performed 02/03/2022) Performed for Presence of right artificial knee joint, Chronic pain of right knee * DIFFERENTIAL MANUAL FLUID(Performed 12/31/2021) Performed for Left knee pain, unspecified chronicity, Status post left knee replacement * CELL COUNT W DIFFERENTIAL FLUID(Performed 12/31/2021) Performed for Left knee pain, unspecified chronicity, Status post left knee replacement * CULTURE FLUID+GRAM STAIN(Performed 12/31/2021) Performed for Left knee pain, unspecified chronicity, Status post left knee replacement * CULTURE ANAEROBE(Performed 12/31/2021) Performed for Left knee pain, unspecified chronicity, Status post left knee replacement * ERYTHROCYTE SEDIMENTATION RATE(Performed 12/23/2021) Performed for Status post bilateral knee replacements * C-REACTIVE PROTEIN(Performed 12/23/2021) Performed for Status post bilateral knee replacements * XR KNEE BILAT 3VW(Performed 12/03/2021) Performed for Status post bilateral knee replacements Results * XR KNEE RIGHT 3VW (09/22/2022 2:47 PM MOWER OPERATOR) Anatomical Region Laterality Modality Lower Extremity Computed Radiogr aphy Narrative 09/22/2022 2:47 PM MOWER OPERATOR Kiley Hernandez M, RT(R) 09/24/2022 6:18 PM See progress notes for results. Reed Espinosa BODY FINISHER-SEARCH COORDINATOR DIAGNOSTI C IMAGING ORDERABLES * NM BONE SCAN 3 PHASE (03/05/2022 3:37 PM CDT) Anatomical Region Laterality Modality Nuclear Medicine 03/05/2022 4:32 PM CDT Impressions 03/06/2022 12:33 PM CDT IMPRESSION: No definite evidence for hardware loosening or fracture.. Edited by Keily Enamorado on 03/05/2022 4:51 PM *Reading Radiologist: Tamiko Rust on 03/06/2022 at 12:33 PM Narrative 03/06/2022 12:33 PM CDT THREE-PHASE BONE SCAN DATE: 03/05/2022 9:52 AM HISTORY: Presence of artificial knee joint, bilateral. COMPARISON: Radiographs of the knee dated 12/03/2021. PROCEDURE: Radionuclide angiography, immediate blood pool and 3 hours delayed imaging. Radiopharmaceutical: 24.7 mCi 99 M technetium MDP Route of injection: IV. Quality of the Scan: Satisfactory. PERTINENT FINDINGS: The angiographic phase demonstrates increased flow to the right knee compared to the left. The immediate blood pool phase demonstrate mild diffusely increased uptake around the knee prosthesis bilaterally, right slightly greater than the left. The delayed images demonstrate increased uptake around the knee prothesis bilaterally, right greater than left. Finding is likely related to altered weightbearing. No definite evidence of focal area of increased tracer activity identified to suggest hardware loosening or fracture. Procedure Note Tamiko Rust MD - 03/06/2022 THREE-PHASE BONE SCAN DATE: 03/05/2022 9:52 AM HISTORY: Presence of artificial knee joint, bilateral. COMPARISON: Radiographs of the knee dated 12/03/2021. PROCEDURE: Radionuclide angiography, immediate blood pool and 3 hours delayed imaging. Radiopharmaceutical: 24.7 mCi 99 M technetium MDP Route of injection: IV. Quality of the Scan: Satisfactory. PERTINENT FINDINGS: The angiographic phase demonstrates increased flow to the right knee compared to the left. The immediate blood pool phase demonstrate mild diffusely increased uptake around the knee prosthesis bilaterally, right slightly greater than the left. The delayed images demonstrate increased uptake around the knee prothesis bilaterally, right greater than left. Finding is likely related to altered weightbearing. No definite evidence of focal area of increased tracer activity identified to suggest hardware loosening or fracture. IMPRESSION IMPRESSION: No definite evidence for hardware loosening or fracture.. Edited by Keily Enamorado on 03/05/2022 4:51 PM *Reading Radiologist: Tamiko Rust on 03/06/2022 at 12:33 PM Dung BLANCO ORDERABLES * DIFFERENTIAL MANUAL FLUID (02/03/2022 11:22 AM CDT) Only the most recent of2 resultswithin the time period is included. Total Nucleated Cells Fluid 2,023 No clearly established reference range x10E6/L 02/03/2022 7:12 PM CDT [facility] Neutrophils % Fluid 30 % 02/03/2022 7:12 PM CDT [facility] Lymphocytes % Fluid 52 % 02/03/2022 7:12 PM CDT [facility] Monocytes % Fluid 2 % 02/03/2022 7:12 PM CDT [facility] Eosinophils Fluid 2 % 02/03/2022 7:12 PM CDT [facility] Macrophage % Fluid 11 % 02/03/2022 7:12 PM CDT [facility] Other Cell Fluid 3 % 02/03/2022 7:12 PM CDT [facility] Comment:Synoviocytes. Cells Counted Fluid 100 02/03/2022 7:12 PM CDT [facility] Fluid SYNOVIAL FLUID / Unknown Collection / Unknown 02/03/2022 11:22 AM CDT 02/03/2022 3:33 PM CDT Lili Magdaleno PA-C LAB - BODY FL UID ORDERABLES [facility] [address] [place] [address] * CULTURE FLUID+GRAM STAIN (02/03/2022 11:22 AM CDT) Only the most recent of2 resultswithin the time period is included. Culture No growth DIONNA 02/06/2022 10:54 PM CDT [facility] Gram Stain Light Red blood cells 02/06/2022 10:54 PM CDT [facility] Gram Stain No polymorphonuclear cells 02/06/2022 10:54 PM CDT [facility] Gram Stain No organisms seen 022 10:54 PM CDT [facility] Fluid SYNOVIAL FLUID / Unknown Collection / Unknown 02/03/2022 11:22 AM CDT 02/03/2022 3:34 PM CDT Lili Magdaleno PA-C LAB - MICROBI OLOGY ORDERABLES [facility] [address] [phone] * CELL COUNT W DIFFERENTIAL FLUID (02/03/2022 11:22 AM CDT) Only the most recent of2 resultswithin the time period is included. Fluid Type Synovial 02/03/2022 3:57 PM CDT [facility] Character Fluid Cloudy 02/03/2022 3:57 PM CDT [facility] Color Fluid Viktoria 02/03/2022 3:57 PM CDT [facility] Total Nucleated Cells Fluid 2,023 No clearly established reference range x10E6/L 02/03/2022 3:57 PM CDT [facility] RBC Fluid 14,000 No clearly established reference ranges x10E6/L 02/03/2022 3:57 PM CDT [facility] Comment Fluid Manual Diff to follow 02/03/2022 3:57 PM CDT [facility] Fluid SYNOVIAL FLUID / Unknown Collection / Unknown 02/03/2022 11:22 AM CDT 02/03/2022 3:33 PM CDT Lili Magdaleno PA-C LAB - BODY FL UID ORDERABLES Performing Organization Address City/[facility] [address]/ZIP Co de Phone Number [facility] [address] [place] [address] * CULTURE ANAEROBE (12/31/2021 1:54 PM CDT) Culture No anaerobic organisms isolated DIONNA 01/05/2022 12:55 PM CDT [facility] Microbiology SYNOVIAL FLUID / Unknown Collection / Unknown 12/31/2021 1:54 PM CDT 12/31/2021 2:09 PM CDT Viktor Tavares MD LAB - MICROBIOLOGY O RDERABLES Performing Organization Address City/[facility] [address]/[facility] Co de Phone Number [facility] [address] [place], [place] [address] [phone] * (ABNORMAL) C-REACTIVE PROTEIN (12/23/2021 12:04 PM CDT) C-Reactive Protein 9.0(H) <8.0 mg/L [facility] Comment: REPORT COMMENT: FASTING:NO Test Performed at: [place] [id number] [place] [employer] [id number] VIKTOR WILKERSON DO,MPH Blood BLOOD SPECIMEN / Unknown 12/23/2021 12:04 PM CDT 12/23/2021 12:05 PM CDT Lili Magdaleno PA-C LAB - SYSTEMS INTEGRATOR RY ORDERABLES Performing Organization Address City/[facility] [address]/ZIP Co de Phone Number [facility] [address] [place] [address] * (ABNORMAL) ERYTHROCYTE SEDIMENTATION RATE (12/23/2021 12:04 PM CDT) Erythrocyte Sedimentation Rate Westergren 33(H) < OR = 20 mm/h [facility] Comment: Test Performed at: [facility] [id number] [place] [employer] [id number] VIKTOR WILKERSON DO,MPH Blood BLOOD SPECIMEN / Unknown 12/23/2021 12:04 PM CDT 12/23/2021 12:05 PM CDT Lili Magdaleno PA-C LAB - HEMATOL OGY ORDERABLES [facility] [address] [place] [address] * XR KNEE BILAT 3VW (12/03/2021 12:59 PM CDT) Anatomical Region Laterality Modality Lower Extremity Computed Radiogr aphy Narrative 12/03/2021 12:59 PM CDT Dara Tse, RT(R) 12/04/2021 1:14 PM See progress notes for results Lili Magdaleno PA-C DIAGNOSTIC IM AGING ORDERABLES
--- OUTSIDE RECORDS SUMMARY | 2024-09-23 11:48 | XMS_ITS | Clinical Summary ---
Author Organization [facility] Address [address] [place] [address] Care Team Providers Care Health And Wellness Coach Name Role Phone Unavailable Primary Care Provider Unavailabl e Source Comments [facility],non-owned Affiliates and Associated Physician Practices is amultiple site organization consisting of ambulatory clinics and hospital sitesin [place], [place], [place] and [place]. This disclosure is being madepursuant to the Care Everywhere program and may not contain all information available regarding this patient. Last updated 18.[facility] Allergies No known active allergies Medications * Be aware that medications may not be up to date on this document. Alwaysverify current medications with the patient. Medication Sig Dispensed Refills Start Date End Date Status aspirin EC (ECOTRIN) 81 MG tablet Take 81 mg by mouth at bedtime Active atorvastatin (LIPITOR) 40 MG tablet Take 40 mg by mouth once daily 07/24/2021 Active hydroCHLOROthiazide (HYDRODIURIL) 25 MG tablet Take 25 mg by mouth once daily 10/06/2021 Active lisinopril (PRINIVIL; ZESTRIL) 40 MG tablet Take 40 mg by mouth at bedtime 10/06/2021 Active pantoprazole EC (PROTONIX) 40 MG tablet Take 40 mg by mouth at bedtime 07/26/2021 Active pitavastatin (LIVALO) 1 MG tablet Take 1 tablet by mouth once daily 10/22/2021 Active verapamil SR 24hr (VERELAN) 240 MG capsule Take 240 mg by mouth once daily 11/19/2021 Active NEXLETOL 180 MG TABS 01/31/2022 Acti ve BRILINTA 90 MG tablet 01/17/2022 Act thai Active Problems Problem Noted Date Diagnosed Date Chronic anemia 03/17/2022 Reactive thrombocytosis 02/27/2022 Presence of right artificial knee joint 02/06/20 22 Coronary artery disease invo lving [place] coronary artery of [place] heart without angina pectoris 10/28/2019 Essential hypertension [...] Mass Index 32.28 12/03/2021 12:34 PM CDT Plan of Treatment Health Maintenance Due Date Last Done Comments COLOGUARD (AGES 45-75) - COL ON CA SCREENING 1955 COLON MONITORING 1955 COLONOSCOPY - COLON CA SCREENING 1955 CT COLONOGRAPHY - COLON CA SCREENING 1955 Colorectal Cancer Screening 1955 FIT - COLON CA SCREENING 1955 FLEX SIG - COLON CA SCREENING 1955 MEDICARE AWV 12 MONTHS 1955 HEPATITIS C SCREENING 07/18/1973 DTAP/TDAP/TD VACCINES (1 - Tdap) 1974 PNEUMOCOCCAL VACCINE 50+ (1 of 1 - PCV) 2005 ZOSTER VACCINE (1 of 2) 2005 SCREENING FOR DIABETES 12/03/2021 COVID-19 VACCINE ( - 2023-2 5 season) 2024 INFLUENZA VACCINE (#1) 2024 DEPRESSION SCREENING 08/17/2024 Respiratory Syncytial Virus (RSV) Vaccine Pt: or over 60 yrs (1 - 1-dose 75+ series) 2030 HEPATITIS B VACCINE Aged Out No longe r eligible based on patient's age to complete this topic HIB VACCINE Aged Out No longer eligi ble based on patient's age to complete this topic HPV VACCINE Aged Out No longer eligi ble based on patient's age to complete this topic MENINGOCOCCAL (Group B) VACCINE Aged Out No longer eligible based on patient's age to complete this topic MENINGOCOCCAL VACCINE Aged Out No armond abby eligible based on patient's age to complete this topic
--- OUTSIDE RECORDS SUMMARY | 2024-09-23 11:48 | XMS_ITS | Clinical Summary ---
Author Organization [facility] [address] Address [address] [place] [address] Care Team Providers Care Motors Assembler Name Role Phone Dulce Arerguin MD Unavailable [phone] Reed Glass MD Unavailable Miguel Vizcaino MD Primary Care Provider [phone] Allergies Active Allergy Reactions Criticality Noted Date Comments Pxsvtdc-Tyl-Nab Reductase Inhibitors Muscle pain High 12/16/2021 Pravastatin, atorvastatin Medications aspirin 81 mg enteric coated tablet Take 1 tablet (81 mg total) by mouth nightly Active cholecalciferol (VITAMIN D-3) 1,000 unit capsule Take 1 capsule (1,000 Units total) by mouth daily Active iron bis-gly/FA/C/B1 2/Ca/succ (IRON-150 ORAL) Take 250 mg by mouth daily Active cyanocobalamin (Vitamin B-12) 500 mcg tablet Take 1 tablet (500 mcg total) by mouth daily Active acetaminophen (TYLENOL) 325 mg tablet Take 2 tablets (650 mg total) by mouth every 6 (six) hours as needed for headaches 30 tablet 2 Active docusate sodium (COLACE) 100 mg capsuleIndicati ons:constipatio n Take 1 capsule (100 mg total) by mouth 2 (two) times a day 2 Active polyethylene glycol (MIRALAX) 17 gram packetIndicatio ns:constipation Take 1 packet (17 g total) by mouth daily 2 Active furosemide (LASIX) 20 mg tabletIndicatio ns:S/P CABG (coronary artery bypass graft) Take 1 tablet (20 mg total) by mouth daily as needed (shortness of breath and/or swelling) 20 tablet 1 2 Active rosuvastatin (CRESTOR) 5 mg tablet Take 1 tablet (5 mg total) by mouth nightly 90 tablet 3 3 Active metoprolol tartrate (LOPRESSOR) 25 mg immediate release tablet Take 0.5 tablets (12.5 mg total) by mouth 2 (two) times a day 90 tablet 2 4 Active lisinopriL (PRINIVIL,ZESTR IL) 40 mg tablet TAKE 1 TABLET BY MOUTH DAILY 90 tablet 1 4 Active ticagrelor (Brilinta) 60 mg tabletIndicatio ns:Coronary artery disease of [place] artery of [place] heart with stable angina pectoris (HCC) TAKE 1 TABLET BY MOUTH 2 TIMES A DAY. 180 tablet 1 4 Active evolocumab (Repatha SureClick) 140 mg/mL pen injector Inject 1 mL (140 mg total) under the skin every 14 (fourteen) days 2 mL 11 5 Active Active Problems Problem Noted Date Diagnosed Date Chest pain 07/29/2021 Overview (07/29/2021): Added automatically from request for surgery [id number] Tobacco use 10/28/2019 Essential hypertension 10/28/2019 Family history of premature CAD 10/28/2019 Hyperlipidemia LDL goal <70 10/28/2019 Coronary artery disease of n ative artery of [place] heart with stable angina pectoris 10/28/2019 Central sleep disordered breathing 03/07/2015 Obstructive sleep apnea syndrome 03/07/2015 Encounters Date Type Department Care Team Description 08/18/2024 Telephone [facility] Cardiology [facility] [place] [phone] Reed Glass MD from Last 3 Months Surgical History Surgery Date Site/Laterality Comments GA TONSILLECTOMY PRIMARY/SECONDARY <AGE 12 Tonsillectomy - (Added by TW Conv) JOINT REPLACEMENT Bilateral TKA (right 2014, Left 2013) LASIK 08/17/2014 - 08/16/2015 CARDIAC CATHETERIZATION stent x 1 Medical History Medical History Date Comments Personal history of other en docrine, nutritional and metabolic disease History of hyperchol esterolemia - (Added by SIRISHA Conv) Atherosclerotic heart diseas e of [place] coronary artery without angina pectoris Coronary artery disease - (A dded by SIRISHA Conv) Sleep apnea H/O angina pectoris 2006 CAD (coronary artery disease) Hypertension Hyperlipidemia Arthritis Family History Medical History Relation Name Comments Parkinsonism Brother Heart disease Father w/CABG Hypertension Father Family history of hypertension - (Added by SIRISHA Conv) Heart disease Mother w/CABG Hypertension Mother Family history of hypertension - (Added by SIRISHA Conv) Heart disease Sister 2 Relation Name Status Comments Brother Alive Father Alive Mother Alive Sister 1 Alive Sister 2 Alive Sister 3 Alive Social History Tobacco Use Types Packs/Day Years Used Date Smoking Tobacco: Some Days Cigars Smokeless Tobacco: Never Tobacco Cessation:Ready to Q uit: Not Asked; Counseling Given: Not Answered Comments:quit cigarettes in 2020; smokes a cigar when he drinks; Counselled pt to contact PCP for assist and inst not to smoke after midnight; Alcohol Use Standard Drinks/Week Comments Yes 1 (1 standard drink = 0.6 oz pur e alcohol) AUDIT-C Answer Date Recorded Q1: How often do you have a drink containing alcohol? 4 or more times a week 08/29/2021 Q2: How many drinks containi ng alcohol do you have on a typical day when you are drinking? 3 or 4 Q3: How often do you have si x or more drinks on one occasion? Never 08/29/2021 Sex and Gender Information Value Date Recorded Sex Assigned at Not on file Legal Sex Male 11:31 PM CURRICULUM DEVELOPER Gender Identity Not on file Sexual Orientation Not on file Obstetrics History Last Filed Vital Signs Vital Sign Reading Time Taken Comments Blood Pressure 134/66 03/07/2024 9:51 AM CDT Pulse 71 03/07/2024 9:14 AM CDT Temperature 36.8 C (98.2 F) 07/07/2022 12:58 PM CURRICULUM DEVELOPER Respiratory Rate 16 10/30/2022 2:28 PM CDT Oxygen Saturation 98% 03/07/2024 9:14 AM CDT Inhaled Oxygen Concentration - - Weight 102.1 kg (225 lb) 03/07/2024 9:14 AM CDT Height 177.8 cm (5' 10 ) 03/07/2024 9:14 AM CDT Body Mass Index 32.28 03/07/2024 9:14 AM CDT Plan of Treatment Health Maintenance Due Date Last Done Comments Colon Cancer Screening-Colonoscopy 1955 Depression Screening 1955 Hepatitis C Screening 1955 Prostate Cancer Screening-PSA 1955 Pneumococcal vaccine 65+ (1 of 2 - PCV) 1961 DTaP/Tdap/Td Vaccine (1 - Tdap) 1966 Hepatitis B Screening 1973 Abdominal Aortic Aneurysm (AAA) Screen 2020 Well Visit 65+ 2020 Fall Risk Assessment 07/07/2023 07/07/2022 Influenza Vaccine (#1) 2024 05/30/2019 Zoster Vaccine Completed 09/14/2019, 05/30/2019 Medical Devices Implanted Type Area Dupligraph Operator Device Identifier Shelf Expiration Date Model / Serial / Lot ParAccel [id number] Synergy Xd Monorail 3mm 24mm 144cm Delivery System 1 Access Port - [id number] Implanted:Qty: 1 on 08/29/2021 by Kimo George MD at [facility] [employer] 03/08/2023 [id number] / / Access Closure Inc Mynx Control 6-7fr 2 Mode Balloon Catheter Sealant Lock Syringe [id number] - [id number] Implanted:Qty: 1 on 06/06/2022 by Kimo George MD at [facility] [employer] 04/16/2024 [id number] / / [id number] Insurance AETNA MEDICARE GOLD MEDICARE [facility] TNA MEDICARE GOLD [facility] MEDICARE Advance Directives For more information, please contact: [phone] * Full Code (Latest Code Status on File) Date Activated Date Inactivated Comments 07/01/2022 2:42 PM 07/07/2022 9:45 PM Care Teams Motors Assembler Relationship Specialty Start Date End Date Miguel Vizcaino MD [address] [place] [address] PCP - General Family Practice 02/06/23 Dulce Arreguin MD Surgeon Cardiothoracic Surgery 07/07/22 Reed Glass MD [address] [place] [address] Consulting Physician Cardiology 07/07/22
--- OUTSIDE RECORDS SUMMARY | 2024-09-23 11:48 | XMS_ITS | Referral Summary ---
Author Organization [facility] [address] Address [address] [place] [address] Care Team Providers Care Graduate Teaching Associate Name Role Phone Dulce Arreguin MD Unavailable [phone] Reed Glass MD Unavailable Miguel Vizcaino MD Primary Care Provider [phone] Encounters Date Type Department Care Team Description 08/18/2024 Telephone [facility] Medical Group Cardiology [address] [place] [phone] Reed Glass MD from Last 3 Months Allergies Active Allergy Reactions Criticality Noted Date Comments Ichlykm-Ghe-Aam Reductase Inhibitors Muscle pain High 12/16/2021 Pravastatin, [...] 60 mg tabletIndicatio ns:Coronary artery disease of [place] artery of [place] heart with stable angina pectoris (HCC) TAKE 1 TABLET BY MOUTH 2 TIMES A DAY. 180 tablet 1 4 Active evolocumab (Repatha SureClick) 140 mg/mL pen injector Inject 1 mL (140 mg total) under the skin every 14 (fourteen) days 2 mL 11 5 Active Active Problems Problem Noted Date Diagnosed Date Chest pain 07/29/2021 Overview (07/29/2021): Added automatically from request for surgery [id number] Tobacco use 10/28/2019 Essential hypertension 10/28/2019 Family history of premature CAD 10/28/2019 Hyperlipidemia LDL goal <70 10/28/2019 Coronary artery disease of n ative artery of [place] heart with stable angina pectoris 10/28/2019 Central sleep disordered breathing 03/07/2015 Obstructive sleep apnea syndrome 03/07/2015 Social History Tobacco Use Types Packs/Day Years [...] on file 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 Gender Identity Not on file Sexual Orientation Not on file Last Filed Vital Signs Vital Sign Reading Time Taken Comments Blood Pressure 134/66 03/07/2024 9:51 AM CDT Pulse 71 03/07/2024 9:14 AM CDT Temperature 36.8 C (98.2 F) 07/07/2022 12:58 PM DRYING ROOM SUPERVISOR Respiratory Rate 16 10/30/2022 2:28 PM CDT Oxygen Saturation 98% 03/07/2024 9:14 AM CDT Inhaled Oxygen Concentration - - Weight 102.1 kg (225 lb) 03/07/2024 9:14 AM CDT Height 177.8 cm (5' 10 ) 03/07/2024 9:14 AM CDT Body Mass Index 32.28 03/07/2024 9:14 AM CDT Plan of Treatment Not on file Medical Devices Implanted Type Area Software Engineering Manager Device Identifier Shelf Expiration Date Model / Serial / Lot InteRNA Technologies [id number] Synergy Xd Monorail 3mm 24mm 144cm Delivery System 1 Access Port - [id number] Implanted:Qty: 1 on 08/29/2021 by Kimo George MD at [facility] [employer] 03/08/2023 [id number] / / Access [employer]osure [employer] Mynx Control 6-7fr 2 Mode Balloon Catheter Sealant Lock Syringe [id number] - [id number] Implanted:Qty: 1 on 06/06/2022 by Kimo George MD at [facility] [employer] 04/16/2024 [id number] / / [id number] Insurance AETNA MEDICARE GOLD MEDICARE [facility] AETNA MEDICARE GOLD [facility] MEDICARE Advance Directives For more information, please contact: [phone] * Full Code (Latest Code Status on File) Date Activated Date Inactivated Comments 07/01/2022 2:42 PM 07/07/2022 9:45 PM Care Teams Graduate Teaching Associate Relationship Specialty Start Date End Date Miguel Vizcaino MD [address] [address] PCP - General Family Practice 02/06/23 Dulce Arreguin MD Surgeon Cardiothoracic Surgery 07/07/22 Reed Glass MD [address] [facility] [address] [place] [address] Consulting Physician Cardiology 07/07/22
--- OUTSIDE RECORDS SUMMARY | 2024-09-23 11:48 | XMS_ITS | CONTINUITY OF CARE DOCUMENT ---
Author Name vinny casillas Address Unknown Organization [facility] Address [address] [place] [address] Phone [phone] Care Team Providers Care Marine Tower Operator Name Role Phone Jorge Escobedo MD Unavailable [phone] Jorge Escobedo MD Unavailable INSURANCE PROVIDERS Payer name Policy type / Coverage type [place] red green party ID [facility] [id number] [place] MEDICARE Medicare [id number]
--- OUTSIDE RECORDS SUMMARY | 2024-09-23 11:48 | XMS_ITS | Referral Summary ---
Author Organization [facility] Address [address] [place] [address] Care Team Providers Care Maintenance Chief Name Role Phone Unavailable Primary Care Provider Unavailabl e Source Comments [facility],non-owned Affiliates and Associated Physician Practices is amultiple site organization consisting of ambulatory clinics and hospital sitesin [place], [place], [place] and [place]. This disclosure is being madepursuant to the Care Everywhere program and may not contain all information available regarding this patient. Last updated 18.[facility] Allergies No known active allergies Medications * [...] 02/06/20 22 Coronary artery disease invo lving [place] coronary artery of [place] heart without angina pectoris 10/28/2019 Essential hypertension [...] 12/03/2021 12:34 PM CDT Plan of Treatment Not on file
--- OUTSIDE RECORDS SUMMARY | 2024-09-23 11:48 | XMS_ITS | Clinical Summary ---
Author Organization [facility] Address [address] [place] [address] Care Team Providers Care Stacker Operator Name Role Phone Unavailable Primary Care Provider Unavailabl e Social History Tobacco Use Types Packs/Day Years Used Date Smoking Tobacco: Never Assessed Sex and Gender Information Value Date Recorded Sex Assigned at Not on file Legal Sex Male 4:07 PM CDT Gender Identity Not on file Sexual Orientation Not on file Plan of Treatment Health Maintenance Due Date Last Done Comments Colorectal Cancer Screening Colonoscopy (10 Years) 1955 Hepatitis C 1973 DTaP, Tdap and Td Vaccines ( 1 - Tdap) 1974 Zoster Vaccines (1 of 2) 2005 Annual Medicare Wellness Visit 2020 Pneumococcal Vaccine: 65+ Ye ars (1 of 1 - PCV) 2020 COVID-19 Vaccine ( - 2023-2 5 season) 2024 Influenza Adult (#1) 2024 RSV Immunization or 60+ Years (1 - 1-dose 75+ series) 2030 Meningococcal B Vaccine Aged Out No l onger eligible based on patient's age to complete this topic Meningococcal Vaccine Aged Out No armond abby eligible based on patient's age to complete this topic RSV Immunizations Under 20 Months Aged Out No longer eligible based on patient's age to complete this topic Insurance MEDICARE [facility]
--- OUTSIDE RECORDS SUMMARY | 2024-09-23 11:49 | XMS_ITS | Clinical Summary ---
Author Organization [facility] Kimberly Glynn Address [address] [place] [address] Care Team Providers Care Pilot Instructor Name Role Phone Miguel Vizcaino MD Primary Care Provider [phone] Allergies No known active allergies Medications Brilinta 90 mg Tablet 02/12/2022 Active aspirin (ECOTRIN EC) 81 mg Tablet, Delayed Release (E.C.) Take 81 mg by mouth daily. Active CALCIUM CARBONATE-VITAMI N D3 ORAL Take 500 mg by mouth. Active cholecalciferol, Vitamin D3, (VITAMIN D3) 25 mcg (1,000 unit) Capsule Take 1,000 Units by mouth daily. Active VITAMIN B COMPLEX ORAL Take 1 Tablet by mouth daily. Active metoprolol tartrate (LOPRESSOR) 25 mg tablet Take 25 mg by mouth 2 times daily. Active rosuvastatin (CRESTOR) 5 mg tablet Take 5 mg by mouth daily. Active lisinopriL (PRINIVIL) 40 mg tablet Take 40 mg by mouth daily. 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 Family History Medical History Relation Name Comments Cancer Father Heart Disease Father Heart Disease Mother Heart Disease Sister 3 Relation Name Status Comments Brother Alive Father Alive Mother Alive Sister 1 Alive Sister 2 Alive Sister 3 Alive Social History Tobacco Use Types Packs/Day Years Used Date Smoking Tobacco: Some Days Cigars Tobacco Cessation:Ready to Q uit: Not Asked; Counseling Given: Not Answered Alcohol Use Standard Drinks/Week Comments Yes 6 (1 standard drink = 0.6 oz pur e alcohol) Sex and Gender Information Value Date Recorded Sex Assigned at Not on file Legal Sex Male 11:47 PM CDT Gender Identity Not on file Sexual Orientation Not on file Last Filed Vital Signs Vital Sign Reading Time Taken Comments Blood Pressure 137/68 06/01/2023 10:52 AM CDT Pulse 62 06/01/2023 10:52 AM CDT Temperature 36.8 C (98.3 F) 06/01/2023 10:52 AM CDT Respiratory Rate 14 06/01/2023 10:52 AM CDT Oxygen Saturation 100% 06/01/2023 10:52 AM CDT Inhaled Oxygen Concentration - - Weight 104.3 kg (230 lb) 06/01/2023 10:52 AM CDT Height 177.8 cm (5' 10 ) 03/17/2022 9:11 AM CDT Body Mass Index 33 03/17/2022 9:11 AM CDT Plan of Treatment Health Maintenance Due Date Last Done Comments DTAP/TDAP/TD VACCINES (1 - Tdap) 1974 PNEUMOCOCCAL VACCINE 65+ YEARS (1 of 2 - PCV) 07/23/19 74 COLORECTAL SCREENING 2000 Colorectal Cancer Screening 2000 FIT-DNA Q 3 years 2000 FIT/FOBT Q 1 year 2000 Flex Sig/CT Colonography Q 5 years 2000 ZOSTER VACCINE (1 of 2) 2005 INFLUENZA VACCINE (#1) 2024 RSV VACCINE (60+ or ) (1 - 1-dose 75+ series) 2030 Insurance MEDICARE PART A AND B [facility] FEDERAL Care Teams Pilot Instructor Relationship Specialty Start Date End Date Miguel Vizcaino MD PCP - General Family Practice 01/28/23
[2024-09-23 13:24] LABS: Appearance Synovial Fluid Cloudy (Clear); Color Synovial Fluid Red (Colorless); Lymphocytes Synovial Fluid 31 %; Monocytes Synovial Fluid 11 %; Neutrophils Synovial Fluid 58 % (0-25); Nucleated Cell Synovial Fluid 7050 /uL (0-200); RBC Synovial Fluid 3415000 /uL (0-0); Source Synovial Fluid Rt Knee Syn Fluid
== END 2024-09-23 11:10 | disposition home or self-care (01) ==
PROVIDERS: PCP Family Medicine; Visit Provider Physician Assistant Surgical
DX: M25.461 Effusion, right knee (principal)
CPT/HCPCS: 87070; 87075; 87205; 89051

== ENCOUNTER 2024-10-12 10:28 | Outpatient (CLI) | payer MEDICARE, SELFPAY ==
--- NOTE | ~2024-10-12 | US_ITS ---
EXAM: ABDOMINAL AORTIC ULTRASOUND HISTORY: AAA screening COMPARISON: 12/04/2020 FINDINGS: PROXIMAL ABDOMINAL AORTA (cm): 1.6 x 1.6 MID ABDOMINAL AORTA (cm): 1.4 x 1.2 DISTAL ABDOMINAL AORTA (cm): 1.0 x 1.6 DIAMETER OF THE RIGHT PROXIMAL COMMON ILIAC ARTERY (cm): 0.9 x 1.2 DIAMETER OF THE LEFT PROXIMAL COMMON ILIAC ARTERY (cm): 0.9 x 1.1 IMPRESSION: No aneurysmal dilatation of the abdominal aorta or the origin of the bilateral common iliac arteries, as detailed above. Reviewed, dictated and finalized at location A. [facility]
--- OUTSIDE RECORDS SUMMARY | 2024-10-12 11:56 | XMS_ITS | Patient Health Summary ---
Author Organization [facility] [employer] Address [address] [place] [address] Care Team Providers Care Press Clippings Cutter And Paster Name Role Phone Unavailable Primary Care Provider Unavailabl e Note from [facility],non-owned Affiliates and Associated Physician Practices is amultiple site organization consisting of ambulatory clinics and hospital sitesin [place], [place], [place] and [place]. This disclosure is being madepursuant to the Care Everywhere program and may not contain all information available regarding this patient. Last updated 18.[facility] Allergies No known active allergies Medications * [...] joint 02/06/20 Coronary artery disease invo lving [place] coronary artery of [place] heart without angina pectoris 10/28/2019 Essential hypertension [...] XR KNEE RIGHT 3VW (09/22/2022 2:47 PM INSTALLER TECHNICIAN) Anatomical Region Laterality Modality Lower Extremity Computed Radiogr aphy Narrative 09/22/2022 2:47 PM INSTALLER TECHNICIAN Kiley Hernandez M, RT(R) 09/24/2022 6:18 PM See progress notes for results. Reed Espinosa COAL HAULER-CATALYST OPERATOR CHIEF DIAGNOSTI C IMAGING ORDERABLES * NM BONE [...] reference range x10E6/L 02/03/2022 7:12 PM CDT [facility] Neutrophils % Fluid 30 % 02/03/2022 7:12 PM CDT [facility] Lymphocytes % Fluid 52 % 02/03/2022 7:12 PM CDT [facility] Monocytes % Fluid 2 % 02/03/2022 7:12 PM CDT [facility] Eosinophils Fluid 2 % 02/03/2022 7:12 PM CDT [facility] Macrophage % Fluid 11 % 02/03/2022 7:12 PM CDT [facility] Other Cell Fluid 3 % 02/03/2022 7:12 PM CDT [facility] Comment:Synoviocytes. Cells Counted Fluid 100 02/03/2022 7:12 PM CDT [facility] Fluid SYNOVIAL FLUID / Unknown Collection / Unknown 02/03/2022 11:22 AM CDT 02/03/2022 3:33 PM CDT Lili Magdaleno PA-C LAB - BODY FL UID ORDERABLES [facility] [address] [place] [address] * CULTURE FLUID+GRAM STAIN (02/03/2022 11:22 AM CDT) Only the most recent of2 resultswithin the time period is included. Culture No growth DIONNA 02/06/2022 10:54 PM CDT [facility] Gram Stain Light Red blood cells 02/06/2022 10:54 PM CDT [facility] Gram Stain No polymorphonuclear cells 02/06/2022 10:54 PM CDT [facility] Gram Stain No organisms seen 022 10:54 PM CDT [facility] Fluid SYNOVIAL FLUID / Unknown Collection / Unknown 02/03/2022 11:22 AM CDT 02/03/2022 3:34 PM CDT Lili Magdaleno PA-C LAB - MICROBI OLOGY ORDERABLES [facility] [address] [phone] * CELL COUNT W DIFFERENTIAL FLUID (02/03/2022 11:22 AM CDT) Only the most recent of2 resultswithin the time period is included. Fluid Type Synovial 02/03/2022 3:57 PM CDT [facility] Character Fluid Cloudy 02/03/2022 3:57 PM CDT [facility] Color Fluid Viktoria 02/03/2022 3:57 PM CDT [facility] Total Nucleated Cells Fluid 2,023 No clearly established reference range x10E6/L 02/03/2022 3:57 PM CDT [facility] RBC Fluid 14,000 No clearly established reference ranges x10E6/L 02/03/2022 3:57 PM CDT [facility] Comment Fluid Manual Diff to follow 02/03/2022 3:57 PM CDT [facility] Fluid SYNOVIAL FLUID / Unknown Collection / Unknown 02/03/2022 11:22 AM CDT 02/03/2022 3:33 PM CDT Lili Magdaleno PA-C LAB - BODY FL UID ORDERABLES Performing Organization Address City/[facility]/ZIP Co de Phone Number [facility] [address] [place] [address] * CULTURE ANAEROBE (12/31/2021 1:54 PM CDT) Culture No anaerobic organisms isolated DIONNA 01/05/2022 12:55 PM CDT [facility] Microbiology SYNOVIAL FLUID / Unknown Collection / Unknown 12/31/2021 1:54 PM CDT 12/31/2021 2:09 PM CDT Viktor Tavares MD LAB - MICROBIOLOGY O RDERABLES Performing Organization Address City/[facility] Co de Phone Number [facility] [address] [place], [place] [address] [phone] * (ABNORMAL) C-REACTIVE PROTEIN (12/23/2021 12:04 PM CDT) C-Reactive Protein 9.0(H) <8.0 mg/L [facility] Comment: REPORT COMMENT: FASTING:NO Test Performed at: [facility] [id number] [id number] VIKTOR WILKERSON DO,MPH Blood BLOOD SPECIMEN / Unknown 12/23/2021 12:04 PM CDT 12/23/2021 12:05 PM CDT Lili Magdaleno PA-C LAB - TENTER FRAME OPERATOR RY ORDERABLES Performing Organization Address City/[facility]/ZIP Co de Phone Number [facility] [address] [place] [address] * (ABNORMAL) ERYTHROCYTE SEDIMENTATION RATE (12/23/2021 12:04 PM CDT) Erythrocyte Sedimentation Rate Westergren 33(H) < OR = 20 mm/h [facility] Comment: Test Performed at: [facility] [address] [id number] VIKTOR WILKERSON DO,MPH Blood BLOOD SPECIMEN / Unknown 12/23/2021 12:04 PM CDT 12/23/2021 12:05 PM CDT Lili Magdaleno PA-C LAB - HEMATOL OGY ORDERABLES [facility] [address] [place] [address] * XR KNEE BILAT 3VW (12/03/2021 12:59 PM CDT) Anatomical Region Laterality Modality Lower Extremity Computed Radiogr aphy Narrative 12/03/2021 12:59 PM CDT Dara Tse, RT(R) 12/04/2021 1:14 PM See progress notes for results Lili Magdaleno PA-C DIAGNOSTIC IM AGING ORDERABLES
--- OUTSIDE RECORDS SUMMARY | 2024-10-12 11:56 | XMS_ITS | Clinical Summary ---
Author Organization [facility] Kimberly Glynn Address [address] [place] [address] Care Team Providers Care Director Of Development Name Role Phone Miguel Vizcaino MD Primary Care Provider [phone] Allergies No known active allergies Medications Brilinta [...] 2030 Insurance MEDICARE PART A AND B [facility] [employer] Care Teams Director Of Development Relationship Specialty Start Date End Date Miguel Vizcaino MD PCP - General Family Practice 01/28/23
--- OUTSIDE RECORDS SUMMARY | 2024-10-12 11:56 | XMS_ITS | Referral Summary ---
Author Organization [facility] [employer] Address [address] [place] [address] Care Team Providers Care Piping Designer Name Role Phone Unavailable Primary Care Provider Unavailabl e Source Comments [facility] [employer],non-owned Affiliates and Associated Physician Practices is amultiple site organization consisting of ambulatory clinics and hospital sitesin [place], [place], [place] and [place]. This disclosure is being madepursuant to the Care Everywhere program and may not contain all information available regarding this patient. Last updated 18.[facility] [employer] [facility] Allergies No known active allergies Medications * [...] 02/06/20 22 Coronary artery disease invo lving [place] coronary artery of [place] heart without angina pectoris 10/28/2019 Essential hypertension [...]
--- OUTSIDE RECORDS SUMMARY | 2024-10-12 11:56 | XMS_ITS | Referral Summary ---
Author Organization [facility] [address] [place] [address] 162 [address] [place] [address] Care Team Providers Care Paint Process Engineer Name Role Phone Dulce Arreguin MD Unavailable [phone] Reed Glass MD Unavailable Miguel Vizcaino MD Primary Care Provider [phone] Encounters Date Type Department Care Team Description 10/11/2024 Telephone [facility] Cardiology [address] [place] [address] Reed Glass MD order 10/07/2024 10:45 AM ETHYLBENZENE CONVERTER HELPER Office Visit [facility] Cardiology [address] [facility] [address] [place] [address] Reed Glass MD 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) (Primary Dx); Essential hypertension; Hyperlipidemia LDL goal <70; Obstructive sleep apnea syndrome; Tobacco use 10/03/2024 8:36 AM ETHYLBENZENE CONVERTER HELPER - 10/03/2024 11:59 PM ETHYLBENZENE CONVERTER HELPER Hospital Encounter [facility] [address] [place] [address] History of total knee arthroplasty, bilateral; Left knee pain, unspecified chronicity; Right knee pain, unspecified chronicity Discharge Disposition: Discharge to home or self care 10/03/2024 7:30 AM ETHYLBENZENE CONVERTER HELPER Office Visit [facility] Medical Office Building [address] [place] [address] Reno Turcios MD Right knee pain, unspecified chronicity (Primary Dx); Broken internal joint prosthesis of other site, initial encounter ([facility]); Loose body in knee, left; Loose body in knee, right; History of total knee arthroplasty, bilateral; Ankylosis of knee joint, unspecified laterality; Left knee pain, unspecified chronicity; Chronic pain of right knee; Chronic pain of left knee 09/30/2024 2:40 PM ETHYLBENZENE CONVERTER HELPER - 09/30/2024 11:59 PM ETHYLBENZENE CONVERTER HELPER Hospital Encounter [facility] [address] [place] [address] Discharge Disposition: Discharge to home or self care 08/18/2024 Telephone [facility] Cardiology [address] [address] Reed Glass MD from Last 3 Months Allergies Active Allergy Reactions Criticality Noted Date Comments [place]-Ecd-Xga Reductase Inhibitors Muscle pain High 12/16/2021 Pravastatin, [...] needed for headaches 30 tablet 2 Active furosemide (LASIX) 20 mg tabletIndicatio ns:S/P CABG (coronary artery bypass graft) Take 1 tablet (20 mg total) by mouth daily as needed (shortness of breath and/or swelling) 20 tablet 1 2 Active metoprolol tartrate (LOPRESSOR) 25 mg immediate release tablet Take 0.5 tablets (12.5 mg total) by mouth 2 (two) times a day 90 tablet 2 4 Active lisinopriL (PRINIVIL,ZESTR IL) 40 mg tablet TAKE 1 TABLET BY MOUTH DAILY 90 tablet 1 4 Active ticagrelor (Brilinta) 60 mg tabletIndicatio ns: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 180 tablet 1 4 Active evolocumab (Repatha SureClick) 140 mg/mL pen injector Inject 1 mL (140 mg total) under the skin every 14 (fourteen) days 2 mL 11 5 Active docusate sodium (COLACE) 100 mg capsuleIndicati ons:constipatio n Take 1 capsule (100 mg total) by mouth 2 (two) times a day 2 10/07/19 25 Discontinu ed(Therapy completed) polyethylene glycol (MIRALAX) 17 gram packetIndicatio ns:constipation Take 1 packet (17 g total) by mouth daily 2 10/07/19 25 Discontinu ed(Therapy completed) rosuvastatin (CRESTOR) 5 mg tablet Take 1 tablet (5 mg total) by mouth nightly 90 tablet 3 3 10/07/19 25 Discontinu ed(Therapy completed) Active Problems Problem Noted Date Diagnosed Date Chest pain 07/29/2021 Overview (07/29/2021): Added automatically from request for surgery [id number] Tobacco use 10/28/2019 Essential hypertension 10/28/2019 Family history of premature CAD 10/28/2019 Hyperlipidemia LDL goal <70 10/28/2019 Coronary artery disease of n ative artery of squaxin heart with stable angina pectoris 10/28/2019 Central sleep disordered breathing 03/07/2015 Obstructive sleep apnea syndrome 03/07/2015 Social History Tobacco Use Types Packs/Day Years Used Date Smoking Tobacco: Some Days Cigarettes 0.3 1.2 Started: 08/05/2023 Cigars Smokeless Tobacco: Never Tobacco Cessation:Ready to [...] on file Legal Sex Male 11:31 PM ETHYLBENZENE CONVERTER HELPER Gender Identity Not on file Sexual Orientation Not on file Last Filed Vital Signs Vital Sign Reading Time Taken Comments Blood Pressure 118/60 10/07/2024 11:02 AM ETHYLBENZENE CONVERTER HELPER Pulse 56 10/07/2024 11:02 AM ETHYLBENZENE CONVERTER HELPER Temperature 36.8 C (98.2 F) 07/07/2022 12:58 PM ETHYLBENZENE CONVERTER HELPER Respiratory Rate 16 10/30/2022 2:28 PM CDT Oxygen Saturation 97% 10/07/2024 11:02 AM ETHYLBENZENE CONVERTER HELPER Inhaled Oxygen Concentration - - Weight 103 kg (227 lb) 10/07/2024 11:02 AM ETHYLBENZENE CONVERTER HELPER Height 177.8 cm (5' 10 ) 10/07/2024 11:02 AM ETHYLBENZENE CONVERTER HELPER Body Mass Index 32.57 10/07/2024 11:02 AM ETHYLBENZENE CONVERTER HELPER Plan of Treatment Not on file Medical Devices Implanted Type Area Plant Maintenance Mechanic Device Identifier Shelf Expiration Date Model / Serial / Lot 365[employer] [id number] Synergy Xd Monorail 3mm 24mm 144cm Delivery System 1 Access Port - [id number] Implanted:Qty: 1 on 08/29/2021 by Kimo George MD at [facility] [employer] 03/08/2023 [id number] / / [employer] Mynx Control 6-7fr 2 Mode Balloon Catheter Sealant Lock Syringe [id number] - [id number] Implanted:Qty: 1 on 06/06/2022 by Kimo George MD at [facility] [employer] 04/16/2024 [id number] / / [id number] Procedures Procedure Name Priority Date/Time Associated Diagnosis Comments AEROBIC AND ANAEROBIC CULTURE AND GRAM STAIN Routine 10/03/2024 7:56 PM ETHYLBENZENE CONVERTER HELPER History of total knee arthroplasty, bilateral Right knee pain, unspecified chronicity MYCOBACTERIOLOGY AFB CULTURE AND ACID-FAST STAIN Routine 10/03/2024 7:56 PM ETHYLBENZENE CONVERTER HELPER History of total knee arthroplasty, bilateral Right knee pain, unspecified chronicity MYCOLOGY (FUNGAL) CULTURE AND STAIN Routine 10/03/2024 7:56 PM ETHYLBENZENE CONVERTER HELPER History of total knee arthroplasty, bilateral Right knee pain, unspecified chronicity AEROBIC AND ANAEROBIC CULTURE AND GRAM STAIN Routine 10/03/2024 7:54 PM ETHYLBENZENE CONVERTER HELPER History of total knee arthroplasty, bilateral Left knee pain, unspecified chronicity MYCOBACTERIOLOGY AFB CULTURE AND ACID-FAST STAIN Routine 10/03/2024 7:54 PM ETHYLBENZENE CONVERTER HELPER History of total knee arthroplasty, bilateral Left knee pain, unspecified chronicity MYCOLOGY (FUNGAL) CULTURE AND STAIN Routine 10/03/2024 7:54 PM ETHYLBENZENE CONVERTER HELPER History of total knee arthroplasty, bilateral Left knee pain, unspecified chronicity CELL DIFFERENTIAL, BODY FLUID Routine 10/03/2024 8:36 AM ETHYLBENZENE CONVERTER HELPER History of total knee arthroplasty, bilateral Left knee pain, unspecified chronicity CELL COUNT W/REFLEX DIFFERENTIAL, BODY FLUID Routine 10/03/2024 8:36 AM ETHYLBENZENE CONVERTER HELPER History of total knee arthroplasty, bilateral Left knee pain, unspecified chronicity CRYSTAL ANALYSIS, BODY FLUID Routine 10/03/2024 8:36 AM ETHYLBENZENE CONVERTER HELPER History of total knee arthroplasty, bilateral Left knee pain, unspecified chronicity SYNOVASURE Routine 10/03/2024 8:36 AM ETHYLBENZENE CONVERTER HELPER History of total knee arthroplasty, bilateral Left knee pain, unspecified chronicity CELL DIFFERENTIAL, BODY FLUID Routine 10/03/2024 8:30 AM ETHYLBENZENE CONVERTER HELPER History of total knee arthroplasty, bilateral Right knee pain, unspecified chronicity CELL COUNT W/REFLEX DIFFERENTIAL, BODY FLUID Routine 10/03/2024 8:30 AM ETHYLBENZENE CONVERTER HELPER History of total knee arthroplasty, bilateral Right knee pain, unspecified chronicity CRYSTAL ANALYSIS, BODY FLUID Routine 10/03/2024 8:30 AM ETHYLBENZENE CONVERTER HELPER History of total knee arthroplasty, bilateral Right knee pain, unspecified chronicity OK ARTHROCENTESIS ASPIR&/INJ MAJOR JT/BURSA W/O US Routine 10/03/2024 7:30 AM ETHYLBENZENE CONVERTER HELPER Chronic pain of left knee OK ARTHROCENTESIS ASPIR&/INJ MAJOR JT/BURSA W/O US Routine 10/03/2024 7:30 AM ETHYLBENZENE CONVERTER HELPER Chronic pain of right knee XR TRANSFER OF OUTSIDE FILMS Routine 09/30/2024 2:40 PM ETHYLBENZENE CONVERTER HELPER from Last 3 Months Results * Aerobic and anaerobic culture and gram stain Synovial fluid Knee, right (10/03/2024 7:56 PM ETHYLBENZENE CONVERTER HELPER) Direct Specimen Exam Stain: No polymorphonuclear leukocytes seen. Red blood cells present. No organisms seen. Report Final Report: No growth [facility] Synovial fluid (Knee, right) 10/03/2024 7:56 PM ETHYLBENZENE CONVERTER HELPER 10/03/2024 8:38 PM ETHYLBENZENE CONVERTER HELPER [facility]ative [facility] - 10/08/2024 9:34 AM ETHYLBENZENE CONVERTER HELPER Testing performed by [facility] Microbiology Laboratory ([phone]) Specimens submitted from normally sterile body sites will have all bacterial morphotypes identified. Specimens that contain grossly mixed armando and/or are from body sites that are not normally sterile will be examined for Staphylococcus aureus, Pseudomonas aeruginosa, beta-hemolytic strep, vancomycin-resistant Enterococcus, Bacteroides, Parabacteroides, Clostridium perfringens and fungus. If any of these are isolated, the organism will be reported. Current interpretive data was last revised on 2019. us Reno Turcios MD LAB MICROBIOLOGY - GENERA L ORDERABLES Final Result [facility] Department [place] [address] * (ABNORMAL) Aerobic and anaerobic culture and gram stain Synovial fluid Knee, left (10/03/2024 7:54 PM ETHYLBENZENE CONVERTER HELPER) Direct Specimen Exam Stain: Cytospin Gram stain shows: Rare polymorphonuclear leukocytes seen. Other cellular material present. No organisms seen. Report Final Report: Rare Coagulase negative Staphylococcus species two colony types No further workup. (.) [facility] Organism COAGULASE NEGATIVE STAPHYLOCOCCUS SPECIES [facility] Synovial fluid (Knee, left) 10/03/2024 7:54 PM ETHYLBENZENE CONVERTER HELPER 10/03/2024 8:21 PM ETHYLBENZENE CONVERTER HELPER Narrative [facility] - 10/08/2024 9:36 AM ETHYLBENZENE CONVERTER HELPER Testing performed by [facility] Microbiology Laboratory ([phone]) Specimens submitted from normally sterile body sites will have all bacterial morphotypes identified. Specimens that contain grossly mixed armando and/or are from body sites that are not normally sterile will be examined for Staphylococcus aureus, Pseudomonas aeruginosa, beta-hemolytic strep, vancomycin-resistant Enterococcus, Bacteroides, Parabacteroides, Clostridium perfringens and fungus. If any of these are isolated, the organism will be reported. Current interpretive data was last revised on 2019. us Reno Turcios MD LAB MICROBIOLOGY - GENERA L ORDERABLES Final Result Performing Organization Address City/[facility]/ZIP Co de Phone Number [facility] Department [place] [address] * Crystal Analysis, Body Fluid (10/03/2024 8:36 AM ETHYLBENZENE CONVERTER HELPER) Specimen type, fld Synovial Crystals None Seen None Seen [facility] Fluid 10/03/2024 8:36 AM ETHYLBENZENE CONVERTER HELPER 10/03/2024 8:11 PM ETHYLBENZENE CONVERTER HELPER us Reno Turcios MD LAB BODY FLUIDS AND STOOL S ORDERABLES Final Result Performing Organization Address City/[facility]/ZIP Co de Phone Number [facility] Department [place] [address] * Cell Differential, Body Fluid (10/03/2024 8:36 AM ETHYLBENZENE CONVERTER HELPER) Total cells diffed See Comment cells Comment: Unable to perform cell differential count due to degenerated cells. Interpretive Data Unless otherwise specified, the reference range and other method performance specifications have not been established for CSF/Body Fluid tests. The test results should be integrated into the clinical context for interpretation. Current interpretive data was last revised on 2019. Fluid 10/03/2024 8:36 AM ETHYLBENZENE CONVERTER HELPER 10/03/2024 8:11 PM ETHYLBENZENE CONVERTER HELPER Reno Turcios MD LAB BODY FLUIDS AND STOOL S ORDERABLES Final Result Performing Organization Address [facility] de Phone Number [facility] [place] [address] * (ABNORMAL) Cell count w/rflx diff, body fluid (10/03/2024 8:36 AM ETHYLBENZENE CONVERTER HELPER) Specimen type, fld Synovial Color, fld Viktoria [facility] Clarity, fld Cloudy(A) Clear [facility] Nucleated cells, fld 221 /cumm [facility] Comment: Interpretive Data Unless otherwise specified, the reference range and other method performance specifications have not been established for CSF/Body Fluid tests. The test results should be integrated into the clinical context for interpretation. Current interpretive data was last revised on 2019. RBC, fld 12,948 /cumm [facility] Fluid 10/03/2024 8:36 AM ETHYLBENZENE CONVERTER HELPER 10/03/2024 8:11 PM ETHYLBENZENE CONVERTER HELPER us Reno Turcios MD LAB BODY FLUIDS AND STOOL S ORDERABLES Final Result Performing Organization Address [facility] Phone Number [facility] [place] [address] * Synovasure (10/03/2024 8:36 AM ETHYLBENZENE CONVERTER HELPER) Fluid 10/03/2024 8:36 AM ETHYLBENZENE CONVERTER HELPER Reno Turcios MD LAB BODY FLUIDS AND STOOL S ORDERABLES Edited Result - Final Performing Organization Address [facility] Co de Phone Number EXTERNAL LAB * Crystal Analysis, Body Fluid (10/03/2024 8:30 AM ETHYLBENZENE CONVERTER HELPER) Specimen type, fld Synovial Crystals None Seen None Seen [facility] Fluid 10/03/2024 8:30 AM ETHYLBENZENE CONVERTER HELPER 10/03/2024 8:13 PM ETHYLBENZENE CONVERTER HELPER Reno Turcios MD LAB BODY FLUIDS AND STOOL S ORDERABLES Final Result Performing Organization Address [facility] de Phone Number [facility] [place] [address] * Cell Differential, Body Fluid (10/03/2024 8:30 AM ETHYLBENZENE CONVERTER HELPER) Pathologist [facility] Total cells diffed See Comment cells Comment: Unable to perform cell differential count due to degenerated cells. Interpretive Data Unless otherwise specified, the reference range and other method performance specifications have not been established for CSF/Body Fluid tests. The test results should be integrated into the clinical context for interpretation. Current interpretive data was last revised on 2019. Fluid 10/03/2024 8:30 AM ETHYLBENZENE CONVERTER HELPER 10/03/2024 8:13 PM ETHYLBENZENE CONVERTER HELPER Reno Turcios MD LAB BODY FLUIDS AND STOOL S ORDERABLES Final Result Performing Organization Address [facility] de Phone Number [facility] [place] [address] * (ABNORMAL) Cell count w/rflx diff, body fluid (10/03/2024 8:30 AM ETHYLBENZENE CONVERTER HELPER) Pathologist [facility] Specimen type, fld Synovial Color, fld Viktoria [facility] Clarity, fld Cloudy(A) Clear [facility] Nucleated cells, fld 224 /cumm [facility] Comment: Interpretive Data Unless otherwise specified, the reference range and other method performance specifications have not been established for CSF/Body Fluid tests. The test results should be integrated into the clinical context for interpretation. Current interpretive data was last revised on 2019. RBC, fld 10,801 /cumm [facility] Fluid 10/03/2024 8:30 AM ETHYLBENZENE CONVERTER HELPER 10/03/2024 8:13 PM ETHYLBENZENE CONVERTER HELPER us Reno Turcios MD LAB BODY FLUIDS AND STOOL S ORDERABLES Final Result [facility] [place] [address] * OK ARTHROCENTESIS ASPIR&/INJ MAJOR JT/BURSA W/O US (10/03/2024 7:30 AM ETHYLBENZENE CONVERTER HELPER) Narrative Reno Turcios MD - 10/03/2024 7:30 AM ETHYLBENZENE CONVERTER HELPER Reno Turcios MD 10/05/2024 8:57 AM Large Joint aspiration: L knee Performed by: Reno Turcios MD Authorized by: Reno Turcios MD Large Joint Injection/Aspiration: Consent Given by: Patient Timeout: prior to procedure the correct patient, procedure, and site was verified Verbal consent obtained: Yes Supporting Documentation: Indications: Pain Procedure Details: Location: Knee Site: L knee Prep: patient was prepped and draped in usual sterile fashion Needle Size: 22 G Approach: Superior lateral Ultrasound guided: No Aspirate amount (mL): 12 Aspirate: Yellow Lab: fluid sent for laboratory analysis Patient tolerance: Patient tolerated the procedure well with no immediate complications us Reno Turcios MD IN CLINIC/BEDSIDE ORDERAB LES Final Result * OK ARTHROCENTESIS ASPIR&/INJ MAJOR JT/BURSA W/O US (10/03/2024 7:30 AM ETHYLBENZENE CONVERTER HELPER) Narrative Reno Turcios MD - 10/03/2024 7:30 AM ETHYLBENZENE CONVERTER HELPER Reno Turcios MD 10/05/2024 8:57 AM Large Joint aspiration: R knee Performed by: Reno Turcios MD Authorized by: Reno Turcios MD Large Joint Injection/Aspiration: Consent Given by: Patient Verbal consent obtained: Yes Supporting Documentation: Indications: Pain Procedure Details: Location: Knee Site: R knee Prep: patient was prepped and draped in usual sterile fashion Needle Size: 22 G Approach: Superior lateral Ultrasound guided: No Aspirate amount (mL): 15 Aspirate: Yellow Lab: fluid sent for laboratory analysis Patient tolerance: Patient tolerated the procedure well with no immediate complications us Reno Turcios MD IN CLINIC/BEDSIDE ORDERAB LES Final Result * XR Outside Reference (09/30/2024 2:40 PM ETHYLBENZENE CONVERTER HELPER) Impressions [facility] - 09/30/2024 2:40 PM ETHYLBENZENE CONVERTER HELPER These images are for Reference purposes only and have not been reviewed by [facility]. There will be no report generated by a [facility] Radiologist. Narrative [facility] - 09/30/2024 2:40 PM ETHYLBENZENE CONVERTER HELPER EXAMINATION: Images For Reference Purposes Only us Reno Turcios MD IMG XR PROCEDURES Final R esult [facility] from Last 3 Months Insurance [facility] MEDICARE [facility] MEDICARE GOLD [employer] MEDICARE GOLD [facility]LY [facility] MEDICARE Advance Directives For more information, please contact: [phone] * Full Code (Latest Code Status on File) Date Activated Date Inactivated Comments 07/01/2022 2:42 PM 07/07/2022 9:45 PM Care Teams Paint Process Engineer Relationship Specialty Start Date End Date Miguel Vizcaino MD [address] [place] [address] PCP - General Family Practice 02/06/23 Dulce Arreguin MD Surgeon Cardiothoracic Surgery 07/07/22 Reed Glass MD [address] [place] [address] Consulting Physician Cardiology 07/07/22
--- OUTSIDE RECORDS SUMMARY | 2024-10-12 11:56 | XMS_ITS | CONTINUITY OF CARE DOCUMENT ---
Author Name vinny casillas Address Unknown Organization [facility] Address [address] [place] [address] Phone [phone] Care Team Providers Care Residential Sales Rep Name Role Phone Jorge Escobedo MD Unavailable [phone] Jorge Escobedo MD Unavailable INSURANCE PROVIDERS Payer name Policy type / Coverage type [place] red constitution party ID [facility] [id number] [place] MEDIC[place] Medicare [id number]
--- OUTSIDE RECORDS SUMMARY | 2024-10-12 11:56 | XMS_ITS | Encounter Summary ---
Author Organization [facility] Healthcare Address [address] [place] [address] Care Team Providers Care Environmental Protection Economist Name Role Phone Dulce Arreguin MD Unavailable [phone] Reed Glass MD Unavailable Miguel Vizcaino MD Primary Care Provider [phone] Reason for Referral * Diagnostic Imaging (Routine) - Pending Review Specialty Diagnoses / Procedures [facility] Referred To Contact Diagnoses Tobacco use Procedures US Abdominal Aorta Reed Glass MD [address] [place] [address] Phone: tel: fax: [facility] Medical Group Referral ID Status Reason Start Date Expiration Date V isits Requested Visits Authorized [id number] Pending Review 10/11/2024 11/10/2025 1 1 CAL CLAIMS SPECIALIST Reason for Visit * Reason Onset Date Comments US order 10/11/2024 Encounter Details Date Type Department Care Team (Late st Contact Info) Description 10/11/2024 Telephone [facility] Medical [facility] Cardiology [address] [place] [address] Reed Glass MD [address] [place] [address] US order Social History Tobacco Use Types Packs/Day Years Used Date Smoking Tobacco: Some Days Cigarettes 0.3 1.2 Started: 08/05/2023 Cigars Smokeless Tobacco: Never Comments:quit cigarettes in 2020; smokes a cigar [...] on file Legal Sex Male 11:31 PM MEDICAL CLAIMS SPECIALIST Gender Identity Not on file Sexual Orientation Not on file documented as of this encounter Miscellaneous Notes * Telephone Encounter - Katia Hauser RN - 10/11/2024 3:09 PM MEDICAL CLAIMS SPECIALIST Spoke with Sujata, she states that medicare will only pay for one AAA screening (pt had one in 2020) and order needs to be changed. Order placed and faxed as requested. CAL CLAIMS SPECIALIST * Telephone Encounter - Nieves Guzman - 10/11/2024 2:37 PM CST Viktoria from [facility] states that she is needing a new order for US Abdominal Aortic Aneurysm Screening ordered by [facility]. States that the patient has already had this done this year. States a new order US aorta should be made and faxed to the number below. Please advise. Thank you. CAL CLAIMS SPECIALIST documented in this encounter Plan of Treatment Scheduled Orders Name Type Priority Associated Diagnoses Orde r Schedule US Abdominal Aorta Imaging Schedule Roxi mann Read Routine (OP Routine) Tobacco use Expected: 10/11/2024, Expires: 10/11/2025 documented as of this encounter Visit Diagnoses Diagnosis Tobacco use- Primary documented in this encounter Care Teams Environmental Protection Economist Relationship Specialty Start Date End Date Miguel Vizcaino MD [address] [facility] [address] [place] [address] PCP - General Family Practice 02/06/23 Dulce Arreguin MD Surgeon Cardiothoracic Surgery 07/07/22 Reed Glass MD [address] [place] [address] Consulting Physician Cardiology 07/07/22 documented as of this encounter
--- OUTSIDE RECORDS SUMMARY | 2024-10-12 11:56 | XMS_ITS | Clinical Summary ---
Author Organization [facility] Address [address] [place] [address] Care Team Providers Care Retirement Officer Name Role Phone Unavailable Primary Care Provider Unavailabl e Source Comments [facility],non-owned Affiliates and Associated Physician Practices is amultiple site organization consisting of ambulatory clinics and hospital sitesin [place], [place], [place] and [place]. This disclosure is being madepursuant to the Care Everywhere program and may not contain all information available regarding this patient. Last updated 18.[facility] Allergies No known active allergies Medications * [...] 02/06/20 22 Coronary artery disease invo lving modoc coronary artery of [place] heart without angina pectoris 10/28/2019 Essential hypertension [...]
--- OUTSIDE RECORDS SUMMARY | 2024-10-12 11:56 | XMS_ITS | Clinical Summary ---
Author Organization [facility] [address] Address [address] [place] [address] Care Team Providers Care Escrow Manager Name Role Phone Dulce Arreguin MD Unavailable [phone] Reed Glass MD Unavailable Miguel Vizcaino MD Primary Care Provider [phone] Allergies Active Allergy Reactions Criticality Noted Date Comments Fjiaymu-Xke-Bli Reductase Inhibitors Muscle pain High 12/16/2021 Pravastatin, [...] 60 mg tabletIndicatio ns:Coronary artery disease of [place] artery of [place] heart with stable angina pectoris (HCC) TAKE [...] (07/29/2021): Added automatically from request for surgery [id number] Tobacco use 10/28/2019 Essential hypertension 10/28/2019 Family history of premature CAD 10/28/2019 Hyperlipidemia LDL goal <70 10/28/2019 Coronary artery disease of n ative artery of [place] heart with stable angina pectoris 10/28/2019 Central sleep disordered breathing 03/07/2015 Obstructive sleep apnea syndrome 03/07/2015 Encounters Date Type Department Care Team Description 10/11/2024 Telephone [facility] Cardiology [address] [place] [address] Reed Glass MD US order 10/07/2024 10:45 AM GREENSKEEPER Office Visit [facility] Cardiology [address] [place] [address] Reed Glass MD Coronary artery disease of [place] artery of [place] heart with stable angina pectoris (HCC) (Primary Dx); Essential hypertension; Hyperlipidemia LDL goal <70; Obstructive sleep apnea syndrome; Tobacco use 10/03/2024 8:36 AM GREENSKEEPER - 10/03/2024 11:59 PM GREENSKEEPER Hospital Encounter [facility] [address] [place] [address] History of total knee arthroplasty, bilateral; Left knee pain, unspecified chronicity; Right knee pain, unspecified chronicity Discharge Disposition: Discharge to home or self care 10/03/2024 7:30 AM GREENSKEEPER Office Visit [facility] Orthopaedic Surgery [address] [place] [address] Reno Turcios MD Right knee pain, unspecified chronicity (Primary Dx); Broken internal joint prosthesis of other site, initial encounter (HCC); Loose body in knee, left; Loose body in knee, right; History of total knee arthroplasty, bilateral; Ankylosis of knee joint, unspecified laterality; Left knee pain, unspecified chronicity; Chronic pain of right knee; Chronic pain of left knee 09/30/2024 2:40 PM GREENSKEEPER - 09/30/2024 11:59 PM GREENSKEEPER Hospital Encounter [facility] [address] [place] [address] Discharge Disposition: Discharge to home or self care 08/18/2024 Telephone [facility] Cardiology [address] [address] Reed Glass MD from Last 3 Months Surgical History Surgery Date Site/Laterality Comments [place] TONSILLECTOMY PRIMARY/SECONDARY <AGE 12 Tonsillectomy - (Added by TW Conv) JOINT REPLACEMENT Bilateral TKA (right 2014, Left 2013) LASIK 08/17/2014 - 08/16/2015 CARDIAC CATHETERIZATION stent x 1 CORONARY ARTERY BYPASS GRAFT 06/07 Medical History Medical History Date Comments Personal history of other en docrine, nutritional and metabolic disease History of hyperchol esterolemia - (Added by TW Conv) Atherosclerotic heart diseas e of wy[place] coronary artery without angina pectoris Coronary artery [...] on file Legal Sex Male 11:31 PM GREENSKEEPER Gender Identity Not on file Sexual Orientation Not on file Obstetrics History Last Filed Vital Signs Vital Sign Reading Time Taken Comments Blood Pressure 118/60 10/07/2024 11:02 AM GREENSKEEPER Pulse 56 10/07/2024 11:02 AM GREENSKEEPER Temperature 36.8 C (98.2 F) 07/07/2022 12:58 PM GREENSKEEPER Respiratory Rate 16 10/30/2022 2:28 PM CDT Oxygen Saturation 97% 10/07/2024 11:02 AM GREENSKEEPER Inhaled Oxygen Concentration - - Weight 103 kg (227 lb) 10/07/2024 11:02 AM GREENSKEEPER Height 177.8 cm (5' 10 ) 10/07/2024 11:02 AM GREENSKEEPER Body Mass Index 32.57 10/07/2024 11:02 AM GREENSKEEPER Plan of Treatment Health Maintenance Due Date Last Done Comments Colon Cancer Screening-Colonoscopy 1955 Depression Screening 1955 Hepatitis C Screening 1955 Prostate Cancer Screening-PSA 1955 DTaP/Tdap/Td Vaccine (1 - Tdap) 1966 Hepatitis B Screening 1973 Pneumococcal vaccine 65+ (1 of 2 - PCV) 1974 Abdominal Aortic Aneurysm (AAA) Screen 2020 Well Visit 65+ 2020 Fall Risk Assessment 07/07/2023 07/07/2022 Influenza Vaccine (#1) 2024 05/30/2019 Zoster Vaccine Completed 09/14/2019, 05/30/2019 Medical Devices Implanted Type Area Cell Installer Device Identifier Shelf Expiration Date Model / Serial / Lot Pogojo [id number] Synergy Xd Monorail 3mm 24mm 144cm Delivery System 1 Access Port - [id number] Implanted:Qty: 1 on 08/29/2021 by iKmo George MD at [facility] [employer] 03/08/2023 [id number] / / [employer] Mynx Control 6-7fr 2 Mode Balloon Catheter Sealant Lock Syringe [id number] - [id number] Implanted:Qty: 1 on 06/06/2022 by Kimo George MD at [facility] [employer] 04/16/2024 [id number] / / [id number] Procedures Procedure Name Priority Date/Time Associated Diagnosis Comments AEROBIC AND ANAEROBIC CULTURE AND GRAM STAIN Routine 10/03/2024 7:56 PM GREENSKEEPER History of total knee arthroplasty, bilateral Right knee pain, unspecified chronicity MYCOBACTERIOLOGY AFB CULTURE AND ACID-FAST STAIN Routine 10/03/2024 7:56 PM GREENSKEEPER History of total knee arthroplasty, bilateral Right knee pain, unspecified chronicity MYCOLOGY (FUNGAL) CULTURE AND STAIN Routine 10/03/2024 7:56 PM GREENSKEEPER History of total knee arthroplasty, bilateral Right knee pain, unspecified chronicity AEROBIC AND ANAEROBIC CULTURE AND GRAM STAIN Routine 10/03/2024 7:54 PM GREENSKEEPER History of total knee arthroplasty, bilateral Left knee pain, unspecified chronicity MYCOBACTERIOLOGY AFB CULTURE AND ACID-FAST STAIN Routine 10/03/2024 7:54 PM GREENSKEEPER History of total knee arthroplasty, bilateral Left knee pain, unspecified chronicity MYCOLOGY (FUNGAL) CULTURE AND STAIN Routine 10/03/2024 7:54 PM GREENSKEEPER History of total knee arthroplasty, bilateral Left knee pain, unspecified chronicity CELL DIFFERENTIAL, BODY FLUID Routine 10/03/2024 8:36 AM GREENSKEEPER History of total knee arthroplasty, bilateral Left knee pain, unspecified chronicity CELL COUNT W/REFLEX DIFFERENTIAL, BODY FLUID Routine 10/03/2024 8:36 AM GREENSKEEPER History of total knee arthroplasty, bilateral Left knee pain, unspecified chronicity CRYSTAL ANALYSIS, BODY FLUID Routine 10/03/2024 8:36 AM GREENSKEEPER History of total knee arthroplasty, bilateral Left knee pain, unspecified chronicity SYNOVASURE Routine 10/03/2024 8:36 AM GREENSKEEPER History of total knee arthroplasty, bilateral Left knee pain, unspecified chronicity CELL DIFFERENTIAL, BODY FLUID Routine 10/03/2024 8:30 AM GREENSKEEPER History of total knee arthroplasty, bilateral Right knee pain, unspecified chronicity CELL COUNT W/REFLEX DIFFERENTIAL, BODY FLUID Routine 10/03/2024 8:30 AM GREENSKEEPER History of total knee arthroplasty, bilateral Right knee pain, unspecified chronicity CRYSTAL ANALYSIS, BODY FLUID Routine 10/03/2024 8:30 AM GREENSKEEPER History of total knee arthroplasty, bilateral Right knee pain, unspecified chronicity [place] ARTHROCENTESIS ASPIR&/INJ MAJOR JT/BURSA W/O US Routine 10/03/2024 7:30 AM GREENSKEEPER Chronic pain of left knee [place] ARTHROCENTESIS ASPIR&/INJ MAJOR JT/BURSA W/O US Routine 10/03/2024 7:30 AM GREENSKEEPER Chronic pain of right knee XR TRANSFER OF OUTSIDE FILMS Routine 09/30/2024 2:40 PM GREENSKEEPER from Last 3 Months Results * Aerobic and anaerobic culture and gram stain Synovial fluid Knee, right (10/03/2024 7:56 PM GREENSKEEPER) Direct Specimen Exam Stain: No polymorphonuclear leukocytes seen. Red blood cells present. No organisms seen. Report Final Report: No growth [facility] Synovial fluid (Knee, right) 10/03/2024 7:56 PM GREENSKEEPER 10/03/2024 8:38 PM GREENSKEEPER Narrative [facility] - 10/08/2024 9:34 AM GREENSKEEPER Testing performed by [facility] ([phone]) Specimens submitted from normally sterile body sites [...] interpretive data was last revised on 2019. Reno Turcios MD LAB MICROBIOLOGY - GENERA L ORDERABLES Final Result [facility] Department [place] [address] * (ABNORMAL) Aerobic and anaerobic culture and gram stain Synovial fluid Knee, left (10/03/2024 7:54 PM GREENSKEEPER) Direct Specimen Exam Stain: Cytospin Gram stain shows: Rare polymorphonuclear leukocytes seen. Other cellular material present. No organisms seen. Report Final Report: Rare Coagulase negative Staphylococcus species two colony types No further workup. (.) [facility] Organism COAGULASE NEGATIVE STAPHYLOCOCCUS SPECIES [facility] Synovial fluid (Knee, left) 10/03/2024 7:54 PM GREENSKEEPER 10/03/2024 8:21 PM GREENSKEEPER Narrative [facility] - 10/08/2024 9:36 AM GREENSKEEPER Testing performed by [facility] ([phone]) Specimens submitted from normally sterile body sites [...] interpretive data was last revised on 2019. Reno Turcios MD LAB MICROBIOLOGY - GENERA L ORDERABLES Final Result Performing Organization Address [facility] de Phone Number [facility] [place] [address] * Crystal Analysis, Body Fluid (10/03/2024 8:36 AM GREENSKEEPER) Specimen type, fld Synovial Crystals None Seen None Seen [facility] Fluid 10/03/2024 8:36 AM GREENSKEEPER 10/03/2024 8:11 PM GREENSKEEPER Reno Turcios MD LAB BODY FLUIDS AND STOOL S ORDERABLES Final Result Performing Organization Address [facility] de Phone Number [facility] [place] [address] * Cell Differential, Body Fluid (10/03/2024 8:36 AM GREENSKEEPER) Total cells diffed See Comment cells Comment: Unable to perform cell differential count due to degenerated cells. Interpretive Data Unless otherwise specified, the reference range and other method performance specifications have not been established for CSF/Body Fluid tests. The test results should be integrated into the clinical context for interpretation. Current interpretive data was last revised on 2019. Fluid 10/03/2024 8:36 AM GREENSKEEPER 10/03/2024 8:11 PM GREENSKEEPER Reno Turcios MD LAB BODY FLUIDS AND STOOL S ORDERABLES Final Result Performing Organization Address [facility] de Phone Number [facility] [place] [address] * (ABNORMAL) Cell count w/rflx diff, body fluid (10/03/2024 8:36 AM GREENSKEEPER) Specimen type, fld Synovial Color, fld Viktoria [facility] Clarity, fld Cloudy(A) Clear [facility] Nucleated cells, fld 221 /cumm [facility] Comment: Interpretive Data Unless otherwise specified, the reference range and other method performance specifications have not been established for CSF/Body Fluid tests. The test results should be integrated into the clinical context for interpretation. Current interpretive data was last revised on 2019. RBC, fld 12,948 /cumm [facility] Fluid 10/03/2024 8:36 AM GREENSKEEPER 10/03/2024 8:11 PM GREENSKEEPER Reno Turcios MD LAB BODY FLUIDS AND STOOL S ORDERABLES Final Result Performing Organization Address [facility] de Phone Number [facility] [place] [address] * Synovasure (10/03/2024 8:36 AM GREENSKEEPER) Fluid 10/03/2024 8:36 AM GREENSKEEPER Reno Turcios MD LAB BODY FLUIDS AND STOOL S ORDERABLES Edited Result - Final Performing Organization Address [facility] de Phone Number EXTERNAL LAB * Crystal Analysis, Body Fluid (10/03/2024 8:30 AM GREENSKEEPER) Specimen type, fld Synovial Crystals None Seen None Seen [facility] Fluid 10/03/2024 8:30 AM GREENSKEEPER 10/03/2024 8:13 PM GREENSKEEPER Reno Turcios MD LAB BODY FLUIDS AND STOOL S ORDERABLES Final Result Performing Organization Address [facility] Co de Phone Number [facility] [place] [address] * Cell Differential, Body Fluid (10/03/2024 8:30 AM GREENSKEEPER) Total cells diffed See Comment cells Comment: Unable to perform cell differential count due to degenerated cells. Interpretive Data Unless otherwise specified, the reference range and other method performance specifications have not been established for CSF/Body Fluid tests. The test results should be integrated into the clinical context for interpretation. Current interpretive data was last revised on 2019. Fluid 10/03/2024 8:30 AM GREENSKEEPER 10/03/2024 8:13 PM GREENSKEEPER us Reno Turcios MD LAB BODY FLUIDS AND STOOL S ORDERABLES Final Result Performing Organization Address [facility] Co de Phone Number [facility] Department [place] [address] * (ABNORMAL) Cell count w/rflx diff, body fluid (10/03/2024 8:30 AM GREENSKEEPER) Pathologist [facility] Specimen type, fld Synovial Color, fld Viktoria [facility] Clarity, fld Cloudy(A) Clear [facility] Nucleated cells, fld 224 /cumm [facility] Comment: Interpretive Data Unless otherwise specified, the reference range and other method performance specifications have not been established for CSF/Body Fluid tests. The test results should be integrated into the clinical context for interpretation. Current interpretive data was last revised on 2019. RBC, fld 10,801 /cumm [facility] Fluid 10/03/2024 8:30 AM GREENSKEEPER 10/03/2024 8:13 PM GREENSKEEPER us Reno Turcios MD LAB BODY FLUIDS AND STOOL S ORDERABLES Final Result Performing Organization Address [facility] Co de Phone Number [facility] Department [place] [address] * [place] ARTHROCENTESIS ASPIR&/INJ MAJOR JT/BURSA W/O US (10/03/2024 7:30 AM GREENSKEEPER) Narrative Reno Turcios MD - 10/03/2024 7:30 AM GREENSKEEPER Reno Turcios MD 10/05/2024 8:57 AM Large [...] IN CLINIC/BEDSIDE ORDERAB LES Final Result * [place] ARTHROCENTESIS ASPIR&/INJ MAJOR JT/BURSA W/O US (10/03/2024 7:30 AM GREENSKEEPER) Narrative Reno Turcios MD - 10/03/2024 7:30 AM GREENSKEEPER Reno Turcios MD 10/05/2024 8:57 AM Large [...] * XR Outside Reference (09/30/2024 2:40 PM GREENSKEEPER) Impressions [facility] - 09/30/2024 2:40 PM GREENSKEEPER These images are for Reference purposes only and have not been reviewed by [facility] Radiology. There will be no report generated by a [facility] Radiologist. Narrative [facility] - 09/30/2024 2:40 PM GREENSKEEPER EXAMINATION: Images For Reference Purposes Only us Reno Turcios MD IMG XR PROCEDURES Final R esult [facility] from Last 3 Months Insurance [facility] MEDICARE [facility] AETNA MEDICARE GOLD AETNA MEDICARE GOLD [facility] MEDICARE Advance Directives For more information, please contact: [phone] * Full Code (Latest Code Status on File) Date Activated Date Inactivated Comments 07/01/2022 2:42 PM 07/07/2022 9:45 PM Care Teams Escrow Manager Relationship Specialty Start Date End Date Miguel Vizcaino MD [address] [id number] PCP - General Family Practice 02/06/23 Dulce Arreguin MD Surgeon Cardiothoracic Surgery 07/07/22 Reed Glass MD [address] [address] Consulting Physician Cardiology 07/07/22
== END 2024-10-12 10:29 | disposition home or self-care (01) ==
PROVIDERS: PCP Family Medicine; Visit Provider Internal Medicine Cardiovascular Disease
DX: Z72.0 Tobacco use (principal)
CPT/HCPCS: 76775

== ENCOUNTER 2025-01-25 09:01 | Outpatient (CLI) | payer MEDICARE, SELFPAY ==
[2025-01-25 09:30] LABS: Basophils Percent Auto 0.3 % (0.2-1.2); Eosinophils Absolute Auto 0.4 K/mm3 (0-0.3); Hematocrit 37.6 % (42.0-52.0); Hemoglobin 12.3 g/dL (14.0-18.0); Immature Granulocyte Absolute 0.07 K/mm3 (0.00-0.031); Immature Granulocyte Percent A 0.5 % (0-0.5); Lymphocytes Absolute Auto 2.53 K/mm3 (0.9-3.2); Lymphocytes Percent Auto 19.7 % (18.3-44.2); Mean Corpuscular HGB Conc 32.7 g/dl (32-36); Mean Corpuscular Hemoglobin 32.3 pg (26-34); Mean Corpuscular Volume 98.7 fl (80-100); Mean Platelet Volume 9.1 fl (7.4-10.4); Monocytes Percent Auto 7.4 % (2.6-8.5); Neutrophils Absolute Auto 8.8 K/mm3 (1.3-6.7); Neutrophils Percent Auto 69.1 % (45.5-73.1); Platelet Count Result 378 k/mm3 (150-375); Red Blood Count 3.81 M/mm3 (4.6-6.20); Red Cell Distribution Width 13.5 % (11.5-14.5); White Blood Count 12.8 K/mm3 (4.5-10.0)
--- OUTSIDE RECORDS SUMMARY | 2025-01-25 09:34 | XMS_ITS | Referral Summary ---
Author Organization [place] [address] Address [address] [place] [address] Care Team Providers Care Manager Agriculture Name Role Phone Dulce Arreguin MD Unavailable [phone] Reed Glass MD Unavailable [phone] Miguel Vizcaino MD Primary Care Provider [phone] Encounters Date Type Department Care Team Description 11/14/2024 6:50 AM CDT Telemedicine [facility] Orthopaedic Surgery [address] [place] [address] Office [address] [place] [address] Reno Turcios MD Preop examination (Primary Dx); Failed total knee, right, subsequent encounter; Failed total knee, left, subsequent encounter; Bilateral chronic knee pain 11/07/2024 Telephone [facility] Cardiology [address] [facility] [address] [place] [address] Reed Glass MD 10/26/2024 4:01 PM CDT - 10/26/2024 11:59 PM CDT Hospital Encounter [facility] [address] [place] [address] Left knee pain, unspecified chronicity; S/P total knee arthroplasty, left Discharge Disposition: Discharge to home or self care 10/26/2024 3:00 PM CDT Office Visit [facility] Orthopaedic Surgery [address] [place] [address] Office Building [address] [place] [address] Reno Turcios MD Left knee pain, unspecified chronicity (Primary Dx); S/P total knee arthroplasty, left from Last 3 Months Allergies Active Allergy Reactions Criticality Noted Date Comments Thnjtqp-Arj-Eny Reductase Inhibitors Muscle pain High 12/16/2021 Pravastatin, [...] 60 mg tabletIndicatio ns:Coronary artery disease of [place] artery of [place] heart with stable angina pectoris TAKE 1 TABLET BY MOUTH 2 TIMES A DAY. 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 Other specified joint disorders, left knee 11/14 Chest pain 07/29/2021 Overview (07/29/2021): Added automatically from request for surgery [id number] Tobacco use 10/28/2019 Essential hypertension 10/28/2019 Family history of premature CAD 10/28/2019 Hyperlipidemia LDL goal <70 10/28/2019 Coronary artery disease of n ative artery of [place] heart with stable angina pectoris 10/28/2019 Central sleep disordered breathing 03/07/2015 Obstructive sleep apnea syndrome 03/07/2015 Social History Tobacco Use Types Packs/Day Years Used Date Smoking Tobacco: Some Days Cigarettes 0.3 1.5 Started: 08/05/2023 Cigars Smokeless Tobacco: Never Tobacco [...] on file Legal Sex 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 Gender Identity Not on file Sexual Orientation Not on file Last Filed Vital Signs Vital Sign Reading Time Taken Comments Blood Pressure 118/60 10/07/2024 11:02 AM SENIOR TEST ENGINEER Pulse 56 10/07/2024 11:02 AM SENIOR TEST ENGINEER Temperature 36.8 C (98.2 F) 07/07/2022 12:58 PM SENIOR TEST ENGINEER Respiratory Rate 16 10/30/2022 2:28 PM CDT Oxygen Saturation 97% 10/07/2024 11:02 AM SENIOR TEST ENGINEER Inhaled Oxygen Concentration - - Weight 103 kg (227 lb) 10/07/2024 11:02 AM SENIOR TEST ENGINEER Height 177.8 cm (5' 10) 10/07/2024 11:02 AM SENIOR TEST ENGINEER Body Mass Index 32.57 10/07/2024 11:02 AM SENIOR TEST ENGINEER Plan of Treatment Upcoming Encounters Date Type Department Care Team (Late st Contact Info) Description 06/29/2025 Hospital Encounter [facility] Operating Room [address] [place] [address] Reno Turcios MD [address] [place] [address] Scheduled Procedures Name Priority Associated Diagnoses Date/Ti me REVISION ARTHROPLASTY TOTAL KNEE - DEPUY Failure of total knee replacement, initial encounter Other specified joint disorders, left knee Medical Devices Implanted Type Area Housing Project Manager Device Identifier Shelf Expiration Date Model / Serial / Lot FPW [employer] [id number] Synergy Xd Monorail 3mm 24mm 144cm Delivery System 1 Access Port - [id number] Implanted:Qty: 1 on 08/29/2021 by Kimo George MD at [facility] link [employer]rett 03/08/2023 [id number] / / [employer] Mynx Control 6-7fr 2 Mode Balloon Catheter Sealant Lock Syringe [id number] - [id number] Implanted:Qty: 1 on 06/06/2022 by Kimo George MD at [facility] [employer] 04/16/2024 [id number] / / [id number] Procedures Procedure Name Priority Date/Time Associated Diagnosis Comments AEROBIC AND ANAEROBIC CULTURE AND GRAM STAIN Routine 10/26/2024 6:37 PM CDT Left knee pain, unspecified chronicity S/P total knee arthroplasty, left MYCOBACTERIOLOGY AFB CULTURE AND ACID-FAST STAIN Routine 10/26/2024 6:37 PM CDT Left knee pain, unspecified chronicity S/P total knee arthroplasty, left MYCOLOGY (FUNGAL) CULTURE AND STAIN Routine 10/26/2024 6:37 PM CDT Left knee pain, unspecified chronicity S/P total knee arthroplasty, left CELL DIFFERENTIAL, BODY FLUID Routine 10/26/2024 4:01 PM CDT Left knee pain, unspecified chronicity S/P total knee arthroplasty, left CELL COUNT W/REFLEX DIFFERENTIAL, BODY FLUID Routine 10/26/2024 4:01 PM CDT Left knee pain, unspecified chronicity S/P total knee arthroplasty, left CRYSTAL ANALYSIS, BODY FLUID Routine 10/26/2024 4:01 PM CDT Left knee pain, unspecified chronicity S/P total knee arthroplasty, left SYNOVASURE Routine 10/26/2024 4:01 PM CDT Left knee pain, unspecified chronicity S/P total knee arthroplasty, left WI ARTHROCENTESIS ASPIR&/INJ MAJOR JT/BURSA W/O US Routine 10/26/2024 3:00 PM CDT Left knee pain, unspecified chronicity S/P total knee arthroplasty, left from Last 3 Months Results * Mycology (fungal) culture and stain Synovial fluid Knee, left (10/26/2024 6:37 PM CDT) Direct Specimen Exam Stain: No Fungal elements seen. Report Final Report: No growth of fungus [facility] Synovial fluid (Knee, left) 10/26/2024 6:37 PM CDT 10/26/2024 8:39 PM CDT Narrative [facility] - 11/23/2024 8:18 AM CDT Insufficient specimen volume received for specimen concentration. Culture results may be falsely negative due to the limited volume of specimen received. Testing performed by [facility] Microbiology Laboratory ([phone]). us Reno Turcios MD LAB MICROBIOLOGY - GENERA L ORDERABLES Final Result [facility] [place] [address] * Mycobacteriology (AFB) culture and acid-fast stain Synovial fluid Knee, left (10/26/2024 6:37 PM CDT) Direct Specimen Exam Stain: No Acid-fast bacilli seen Report Final Report: No growth of acid-fast bacilli [facility] Synovial fluid (Knee, left) 10/26/2024 6:37 PM CDT 10/26/2024 8:39 PM CDT Narrative [facility] - 12/26/2024 11:21 AM CDT Testing performed by [facility] Microbiology Laboratory ([phone]). Reno Turcios MD LAB MICROBIOLOGY - GENERA L ORDERABLES Final Result Performing Organization Address [facility] Co de Phone Number [facility] Department [place] [address] * Aerobic and anaerobic culture and gram stain Synovial fluid Knee, left (10/26/2024 6:37 PM CDT) Direct Specimen Exam Stain: No polymorphonuclear leukocytes seen. Red blood cells present. No organisms seen. Report Final Report: No growth [facility] Synovial fluid (Knee, left) 10/26/2024 6:37 PM CDT 10/26/2024 8:39 PM CDT Narrative [facility] - 11/01/2024 10:00 AM CDT Insufficient specimen volume received for specimen concentration. Culture results may be falsely negative due to the limited volume of specimen received. Testing performed by [facility] Microbiology Laboratory ([phone]) Specimens submitted from normally sterile body sites [...] L ORDERABLES Final Result Performing Organization Address [facility] Co de Phone Number [facility] [place] [address] * Crystal Analysis, Body Fluid (10/26/2024 4:01 PM CDT) Specimen type, fld Synovial Crystals None Seen None Seen [facility] Fluid 10/26/2024 4:01 PM CDT 10/26/2024 6:40 PM CDT Reno Turcios MD LAB BODY FLUIDS AND STOOL S ORDERABLES Final Result Performing Organization Address [facility] [place] [address] * Cell Differential, Body Fluid (10/26/2024 4:01 PM CDT) Total cells diffed See Comment cells Comment: Unable to perform differential due to cellular degeneration. Interpretive Data Unless otherwise specified, the reference range and other method performance specifications have not been established for CSF/Body Fluid tests. The test results should be integrated into the clinical context for interpretation. Current interpretive data was last revised on 2019. Fluid 10/26/2024 4:01 PM CDT 10/26/2024 6:40 PM CDT Reno Turcios MD LAB BODY FLUIDS AND STOOL S ORDERABLES Final Result Performing Organization Address [facility] de Phone Number [facility] [place] [address] * (ABNORMAL) Cell count w/rflx diff, body fluid (10/26/2024 4:01 PM CDT) Specimen type, fld Synovial Color, fld Yellow [facility] Clarity, fld Cloudy(A) Clear [facility] Nucleated cells, fld 63 /cumm [facility] Comment: Results may be inaccurate due to cellular degeneration. Interpretive Data Unless otherwise specified, the reference range and other method performance specifications have not been established for CSF/Body Fluid tests. The test results should be integrated into the clinical context for interpretation. Current interpretive data was last revised on 2019. RBC, fld 370 /cumm [facility] Comment:Results may be inacc urate due to cellular degeneration. Fluid 10/26/2024 4:01 PM CDT 10/26/2024 6:40 PM CDT us Reno Turcios MD LAB BODY FLUIDS AND STOOL S ORDERABLES Final Result [facility] Department [place] [address] * Synovasure (10/26/2024 4:01 PM CDT) Fluid 10/26/2024 4:01 PM CDT us Reno Turcios MD LAB BODY FLUIDS AND STOOL S ORDERABLES Edited Result - Final EXTERNAL LAB * WI ARTHROCENTESIS ASPIR&/INJ MAJOR JT/BURSA W/O US (10/26/2024 3:00 PM CDT) Narrative Reno Turcios MD - 10/26/2024 3:00 PM CDT Reno Turcios MD 10/30/2024 10:44 PM Large Joint aspiration: L knee Performed by: Reno Turcios MD Authorized by: Reno Turcios MD Large Joint Injection/Aspiration: Consent Given by: Patient Verbal consent obtained: Yes Supporting Documentation: Indications: Pain Procedure Details: Location: Knee Site: L knee Prep: patient was prepped and draped in usual sterile fashion Needle Size: 22 G Approach: Superior lateral Ultrasound guided: No Aspirate amount (mL): 10 Aspirate: Yellow Lab: fluid sent for laboratory analysis Patient tolerance: Patient tolerated the procedure well with no immediate complications us Reno Turcios MD IN CLINIC/BEDSIDE ORDERAB LES Final Result from Last 3 Months Insurance AETNA MEDICARE GOLD AETNA MEDICARE GOLD AETNA MEDICARE GOLD [facility] MEDICARE Advance Directives For more information, please contact: [phone] * Full Code (Latest Code Status on File) Date Activated Date Inactivated Comments 07/01/2022 2:42 PM 07/07/2022 9:45 PM Care Teams Manager Agriculture Relationship Specialty Start Date End Date Miguel Vizcaino MD [address] [place] [id number] PCP - General Family Practice 02/06/23 Dulce Arreguin MD Surgeon Cardiothoracic Surgery 07/07/22 Reed Glass MD [address] [place] [address] Consulting Physician Cardiology 07/07/22
--- OUTSIDE RECORDS SUMMARY | 2025-01-25 09:34 | XMS_ITS | Clinical Summary ---
Author Organization [facility] [address] Address [address] [place] [address] Care Team Providers Care Display Manager Name Role Phone Dulce Arreguin MD Unavailable [phone] Reed Glass MD Unavailable [phone] Miguel Vizcaino MD Primary Care Provider [phone] Allergies Active Allergy Reactions Criticality Noted Date Comments Vgzerel-Doa-Uxu Reductase Inhibitors Muscle pain High 12/16/2021 Pravastatin, [...] 60 mg tabletIndicatio ns:Coronary artery disease of [place] artery of [place] heart with stable angina pectoris TAKE 1 TABLET BY MOUTH 2 TIMES A DAY. 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 Other specified joint disorders, left knee 11/14 Chest pain 07/29/2021 Overview (07/29/2021): Added automatically from request for surgery [id number] Tobacco use 10/28/2019 Essential hypertension 10/28/2019 Family history of premature CAD 10/28/2019 Hyperlipidemia LDL goal <70 10/28/2019 Coronary artery disease of n ative artery of [place] heart with stable angina pectoris 10/28/2019 Central sleep disordered breathing 03/07/2015 Obstructive sleep apnea syndrome 03/07/2015 Encounters Date Type Department Care Team Description 11/14/2024 6:50 AM CDT Telemedicine [facility] Orthopaedic Surgery [address] [facility] Medical Office Building [address] [place] [address] Reno Turcios MD Preop examination (Primary Dx); Failed total knee, right, subsequent encounter; Failed total knee, left, subsequent encounter; Bilateral chronic knee pain 11/07/2024 Telephone [facility] Cardiology [address] [place] [address] Reed Glass MD 10/26/2024 4:01 PM CDT - 10/26/2024 11:59 PM CDT Hospital Encounter [facility] [address] [place] [address] Left knee pain, unspecified chronicity; S/P total knee arthroplasty, left Discharge Disposition: Discharge to home or self care 10/26/2024 3:00 PM CDT Office Visit [facility] Orthopaedic Surgery [address] [facility] Medical Office Building [address] [place] [address] Reno Turcios MD Left knee pain, unspecified chronicity (Primary Dx); S/P total knee arthroplasty, left from Last 3 Months Surgical History Surgery Date Site/Laterality Comments SD TONSILLECTOMY PRIMARY/SECONDARY <AGE 12 Tonsillectomy - (Added by TW Conv) JOINT REPLACEMENT Bilateral TKA (right 2014, Left 2013) LASIK 08/17/2014 - 08/16/2015 CARDIAC CATHETERIZATION stent x 1 CORONARY ARTERY BYPASS GRAFT 06/07 Medical History Medical History Date Comments Personal history of other en docrine, nutritional and metabolic disease History of hyperchol esterolemia - (Added by Conv) Atherosclerotic heart diseas e of [place] coronary artery without angina pectoris Coronary artery disease - (A dded by Conv) Sleep apnea H/O angina pectoris 2006 CAD (coronary artery disease) Hypertension Hyperlipidemia Arthritis Family History Medical History Relation Name Comments Parkinsonism Brother Heart disease Father w/CABG Hypertension Father Family history of hypertension - (Added by TW Conv) Heart disease Mother w/CABG Hypertension Mother Family history of hypertension - (Added by TW Conv) Heart disease Sister 2 Relation Name [...] on file 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 Gender Identity Not on file Sexual Orientation Not on file Obstetrics History Last Filed Vital Signs Vital Sign Reading Time Taken Comments Blood Pressure 118/60 10/07/2024 11:02 AM CORPORATE RISK ANALYST Pulse 56 10/07/2024 11:02 AM CORPORATE RISK ANALYST Temperature 36.8 C (98.2 F) 07/07/2022 12:58 PM CORPORATE RISK ANALYST Respiratory Rate 16 10/30/2022 2:28 PM CDT Oxygen Saturation 97% 10/07/2024 11:02 AM CORPORATE RISK ANALYST Inhaled Oxygen Concentration - - Weight 103 kg (227 lb) 10/07/2024 11:02 AM CORPORATE RISK ANALYST Height 177.8 cm (5' 10) 10/07/2024 11:02 AM CORPORATE RISK ANALYST Body Mass Index 32.57 10/07/2024 11:02 AM CORPORATE RISK ANALYST Plan of Treatment Upcoming Encounters Date Type Department Care Team (Late st Contact Info) Description 06/29/2025 Hospital Encounter [facility] Operating Room [id number] [place] [address] [place] [address] Reno Turcios MD [address] [facility] [address] [place] [address] Scheduled Procedures Name Priority Associated Diagnoses Date/Ti me REVISION ARTHROPLASTY TOTAL KNEE - DEPUY Failure of total knee replacement, initial encounter Other specified joint disorders, left knee Health Maintenance Due Date Last Done Comments Colon Cancer Screening-Colonoscopy 1955 Depression Screening 1955 Hepatitis C Screening 1955 Prostate Cancer Screening-PSA 1955 DTaP/Tdap/Td Vaccine (1 - Tdap) 1966 Hepatitis B Screening 1973 Pneumococcal vaccine 65+ (1 of 2 - PCV) 1974 Abdominal Aortic Aneurysm (AAA) Screen 2020 Well Visit 65+ 2020 Fall Risk Assessment 07/07/2023 07/07/2022 Influenza Vaccine (Season Ended) 2025 05/30/20 19 Zoster Vaccine Completed 09/14/2019, 05/30/2019 Medical Devices Implanted Type Area Waiter Waitress Device Identifier Shelf Expiration Date Model / Serial / Lot [employer] [id number] Synergy Xd Monorail 3mm 24mm 144cm Delivery System 1 Access Port - [id number] Implanted:Qty: 1 on 08/29/2021 by Kimo George MD at [facility] [employer] 03/08/2023 [id number] / / [employer] Mynx Control 6-7fr 2 Mode Balloon Catheter Sealant Lock Syringe [id number] - [id number] Implanted:Qty: 1 on 06/06/2022 by Kimo George MD at [facility] [employer] 04/16/2024 [id number] / / [id number] Procedures Procedure Name Priority Date/Time Associated Diagnosis [...] unspecified chronicity S/P total knee arthroplasty, left SD ARTHROCENTESIS ASPIR&/INJ MAJOR JT/BURSA W/O US Routine 10/26/2024 3:00 PM CDT Left knee pain, unspecified chronicity S/P total knee arthroplasty, left from Last 3 Months Results * Mycology (fungal) culture and stain Synovial fluid Knee, left (10/26/2024 6:37 PM CDT) Pathologist [facility] Direct Specimen Exam Stain: No Fungal elements seen. Report Final Report: No growth of fungus [facility] Synovial fluid (Knee, left) 10/26/2024 6:37 PM CDT 10/26/2024 8:39 PM CDT Narrative [facility] - 11/23/2024 8:18 AM CDT Insufficient specimen volume received for specimen concentration. Culture results may be falsely negative due to the limited volume of specimen received. Testing performed by [facility] Microbiology Laboratory ([phone]). us Reno Turcios MD LAB MICROBIOLOGY - GENERA L ORDERABLES Final Result Performing Organization Address City/[facility] [address]/ZIP Co de Phone Number [facility] Department [place] [place] [address] * Mycobacteriology (AFB) culture and acid-fast stain Synovial fluid Knee, left (10/26/2024 6:37 PM CDT) [facility] Direct Specimen Exam Stain: No Acid-fast bacilli seen Report Final Report: No growth of acid-fast bacilli [facility] Synovial fluid (Knee, left) 10/26/2024 6:37 PM CDT 10/26/2024 8:39 PM CDT Narrative [facility] - 12/26/2024 11:21 AM CDT Testing performed by [facility] Microbiology Laboratory ([phone]). us Reno Turcios MD LAB MICROBIOLOGY - GENERA L ORDERABLES Final Result [facility] [place] [address] * Aerobic and anaerobic culture and gram stain Synovial fluid Knee, left (10/26/2024 6:37 PM CDT) [facility] Direct Specimen Exam Stain: No polymorphonuclear leukocytes seen. Red blood cells present. No organisms seen. Report Final Report: No growth [facility] Synovial fluid (Knee, left) 10/26/2024 6:37 PM CDT 10/26/2024 8:39 PM CDT Narrative [facility] - 11/01/2024 10:00 AM CDT Insufficient specimen volume received for specimen concentration. Culture results may be falsely negative due to the limited volume of specimen received. Testing performed by [facility] Microbiology Laboratory ([phone]) Specimens submitted from normally sterile body sites [...] L ORDERABLES Final Result Performing Organization Address City/[facility] [address]/ZIP Co de Phone Number [facility] Department [place] [place] [address] * Crystal Analysis, Body Fluid (10/26/2024 4:01 PM CDT) [facility] Specimen type, fld Synovial Crystals None Seen None Seen [facility] Fluid 10/26/2024 4:01 PM CDT 10/26/2024 6:40 PM CDT Reno Turcios MD LAB BODY FLUIDS AND STOOL S ORDERABLES Final Result [facility] Department [place] [address] * Cell Differential, Body Fluid (10/26/2024 4:01 PM CDT) [facility] Total cells diffed See Comment cells Comment: [...] S ORDERABLES Final Result Performing Organization Address City/[facility] [address]/[facility] Co de Phone Number [facility] [place] [place] [address] * (ABNORMAL) Cell count w/rflx diff, body fluid (10/26/2024 4:01 PM CDT) Specimen type, fld Synovial Color, fld Yellow [facility] Clarity, fld Cloudy(A) Clear [facility] Nucleated cells, fld 63 /cumm [facility] Comment: Results may be inaccurate due to cellular degeneration. Interpretive Data Unless otherwise specified, the reference range and other method performance specifications have not been established for CSF/Body Fluid tests. The test results should be integrated into the clinical context for interpretation. Current interpretive data was last revised on 2019. RBC, fld 370 /cumm [facility] Comment:Results may be inacc urate due to cellular degeneration. Fluid 10/26/2024 4:01 PM CDT 10/26/2024 6:40 PM CDT us Reno Turcios MD LAB BODY FLUIDS AND STOOL S ORDERABLES Final Result Performing Organization Address [facility] [address]/[facility] Co de Phone Number [facility] [place] [place] [address] * Synovasure (10/26/2024 4:01 PM CDT) Fluid 10/26/2024 4:01 PM CDT us Reno Turcios MD LAB BODY FLUIDS AND STOOL S ORDERABLES Edited Result - Final EXTERNAL LAB * SD ARTHROCENTESIS ASPIR&/INJ MAJOR JT/BURSA W/O US (10/26/2024 [...] Final Result from Last 3 Months Insurance [facility] AETNA MEDICARE GOLD AETNA MEDICARE GOLD [facility] MEDICARE Advance Directives For more information, please contact: [phone] * Full Code (Latest Code Status on File) Date Activated Date Inactivated Comments 07/01/2022 2:42 PM 07/07/2022 9:45 PM Care Teams Display Manager Relationship Specialty Start Date End Date Miguel Vizcaino MD [address] [place] [phone] PCP - General Family Practice 02/06/23 Dulce Arreguin MD Surgeon Cardiothoracic Surgery 07/07/22 Reed Glass MD [address] [place] [id number] Consulting Physician Cardiology 07/07/22
--- OUTSIDE RECORDS SUMMARY | 2025-01-25 09:34 | XMS_ITS | CONTINUITY OF CARE DOCUMENT ---
Author Name vinny casillas Address Unknown Organization [facility] Address [address] [facility] [address] [place] [address] Phone [phone] Care Team Providers Care Grain Shipper Name Role Phone Jorge Escobedo MD Unavailable Jorge Escobedo MD Unavailable [phone] INSURANCE PROVIDERS Payer name Policy type / Coverage type [place] green party ID [facility] [id number] [place] Medicare [id number]
--- OUTSIDE RECORDS SUMMARY | 2025-01-25 09:34 | XMS_ITS | Clinical Summary ---
Author Organization [facility] Kimberly Glynn Address [address] [place] [address] Care Team Providers Care Brake Tester Name Role Phone Miguel Vizcaino MD Primary Care Provider [phone] Allergies No known active allergies Medications Brilinta [...] 10:52 AM CDT Height 177.8 cm (5' 10) 03/17/2022 9:11 AM CDT Body Mass Index 33 03/17/2022 9:11 AM CDT Plan of Treatment Health Maintenance Due Date Last Done Comments DTAP/TDAP/TD VACCINES (1 - Tdap) 1974 PNEUMOCOCCAL VACCINE 50+ YEARS (1 of 2 - PCV) 07/23/19 74 COLORECTAL SCREENING 2000 Colorectal Cancer Screening 2000 FIT-DNA Q 3 years 2000 FIT/FOBT Q 1 year 2000 Flex Sig/CT Colonography Q 5 years 2000 ZOSTER VACCINE (1 of 2) 2005 INFLUENZA VACCINE (#1) 2024 RSV VACCINE (60+ or ) (1 - 1-dose 75+ series) 2030 Insurance MEDICARE PART A AND B [facility] Care Teams Brake Tester Relationship Specialty Start Date End Date Miguel Vizcaino MD PCP - General Family Practice 01/28/23
--- OUTSIDE RECORDS SUMMARY | 2025-01-25 09:34 | XMS_ITS | Clinical Summary ---
Author Organization [facility] Address [address] [place] [address] Care Team Providers Care White Washer Piler Name Role Phone Unavailable Primary Care Provider Unavailabl e Source Comments [facility],non-owned Affiliates and Associated Physician Practices is amultiple site organization consisting of ambulatory clinics and hospital sitesin [place], [place], [place] and [place]. This disclosure is being madepursuant to the Care Everywhere program and may not contain all information available regarding this patient. Last updated 18.[facility] Allergies No known active allergies Medications * Be aware that medications may not be up to date on this document. Alwaysverify current medications with the patient. aspirin EC (ECOTRIN) 81 MG tablet Take 81 mg by mouth at bedtime Active atorvastatin (LIPITOR) 40 MG tablet Take 40 mg by mouth once daily 07/24/2021 Active hydroCHLOROthia zide (HYDRODIURIL) 25 MG tablet Take 25 mg [...] 11/19/2021 Active NEXLETOL 180 MG TABS 01/31/2022 Active BRILINTA 90 MG tablet 01/17/2022 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 Presence of right artificial knee joint 02/06/20 22 Coronary artery disease invo lving [place] coronary artery of [place] heart without angina pectoris 10/28/2019 Essential hypertension 10/28/2019 Social History Tobacco Use Types Packs/Day Years Used Date Smoking Tobacco: Never Smokeless Tobacco: Never Sex and Gender Information Value Date Recorded Sex Assigned at Not on file 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 Gender Identity Not on file Sexual Orientation Not on file Last Filed Vital Signs Vital Sign Reading Time Taken Comments Blood Pressure - - Pulse - - Temperature - - Respiratory Rate - - Oxygen Saturation - - Inhaled Oxygen Concentration - - Weight 102.1 kg (225 lb) 12/03/2021 12:34 PM CDT Height 177.8 cm (5' 10) 12/03/2021 12:34 PM CDT Body Mass Index 32.28 12/03/2021 12:34 PM CDT Plan of Treatment Health Maintenance Due Date Last Done Comments COLOGUARD (AGES 45-75) - COLON CA SCREENING 1955 COLON MONITORING 1955 COLONOSCOPY [...] 2005 ZOSTER VACCINE (1 of 2) 2005 COVID-19 VACCINE (1 - 2023- season) 2024 DEPRESSION SCREENING 08/17/2024 INFLUENZA VACCINE (Season Ended) 2025 SCREENING FOR DIABETES 10/02/2025 3, 07/14/2022, 07/14/2022, Additional history exists Respiratory Syncytial Virus (RSV) Vaccine Pt: or [...] complete this topic MENINGOCOCCAL (Group B) VACCINE SHARED DECISION-MAKING Aged Out No longer eligible based on patient's age to complete this topic MENINGOCOCCAL GROUPS A/C/Y/W VACCINE Aged Out No longer eligible based on patient's age to complete this topic Insurance MEDICARE PENDING SALE TO [facility]
[2025-01-25 09:44] LABS: Alanine Aminotransferase 22 U/L (6-50); Albumin Level 4.3 g/dL (3.5-5.1); Alkaline Phosphatase 70 U/L (38-126); Anion Gap 6 mmol/L (4-12); Aspartate Amino Transferase 29 U/L (17-59); Bilirubin,Total 0.6 mg/dL (0.2-1.3); Blood Urea Nitrogen 18 mg/dL (9-20); Calcium 9.2 mg/dL (8.4-10.2); Carbon Dioxide 24 mmol/L (22-30); Chloride 108 mmol/L (98-107); Cholesterol 98 mg/dL (0-200); Estimated Glomerular Filt Rate > 60; Glucose 112 mg/dL (65-110); HDL Direct 45 mg/dL; Potassium 4.7 mmol/L (3.4-5.0); Sodium 138 mmol/L (137-145); Total Protein 7.5 g/dL (6.3-8.2); Triglycerides 53 mg/dL (<150)
[2025-01-25 09:55] LABS: LDL Cholesterol Direct 34 mg/dL
[2025-01-25 10:09] LABS: Vitamin D 25 Hydroxy 43.1 ng/mL
[2025-01-25 10:32] LABS: Prostate Specific Antigen 0.9 ng/mL (< OR = 4.0)
== END 2025-01-25 09:02 | disposition home or self-care (01) ==
PROVIDERS: PCP Family Medicine; Visit Provider Family Medicine
DX: I10 Essential (primary) hypertension (principal); I25.10 Atherosclerotic heart disease of native coronary artery without angina pectoris; E78.5 Hyperlipidemia, unspecified; E66.9 Obesity, unspecified; E55.9 Vitamin D deficiency, unspecified; Z12.5 Encounter for screening for malignant neoplasm of prostate; Z79.899 Other long term (current) drug therapy
CPT/HCPCS: 36415; 80053; 80061; 82306; 82607; 84153; 85025; G0103

== ENCOUNTER 2025-02-12 08:03 | Emergency (ER) | payer MEDICARE, SELFPAY ==
[2025-02-12 08:10] VITALS: BP 129/48; PULSE 58; RESP 16; TEMP 36.4; O2SAT 100
--- NOTE | 2025-02-12 08:30 | ED_ITS ---
HPI - Eye Problem General Chief complaint: Eye Problems Stated complaint: LT Eye irritation Source: patient Mode of arrival: ambulatory Limitations: no limitations History of Present Illness HPI Narrative: Patient is a 69-year-old male who presents to the clinic with complaints of left eye pain since yesterday. He states that he was weed eating yesterday and feels like something got in his eye. He endorses that his left eye has been watering all night and it is sensitive to light. He has tried anything over the counter. He is up-to-date with his tetanus shot. Denies any vision changes. Related Data Home Medications ?Medication ?Instructions ?Recorded ?Confirmed ?Last Taken ?Type aspirin 81 mg tablet,delayed 81 mg PO DAILY 11/02/19 11/08/24 07/25/21 History release (Adult Aspirin Regimen) 0700 cholecalciferol (vitamin D3) 50 50 mcg PO DAILY 07/15/21 11/08/24 07/25/21 07:00 History mcg (2,000 unit) capsule metoprolol tartrate 25 mg tablet 12.5 mg PO BID 07/25/22 11/08/24 11/05/23 History ferrous sulfate 325 mg (65 mg 325 mg PO DAILY 02/02/23 11/08/24 Unknown History iron) tablet lisinopril 40 mg tablet 40 mg PO DAILY 02/02/23 11/08/24 Unknown History vitamin B complex (B 1 tablet PO DAILY 02/02/23 11/08/24 Unknown History Complex-Vitamin B12 tablet) ascorbate calcium (vitamin C) 500 500 mg PO DAILY 09/17/23 11/08/24 Unknown History mg tablet ticagrelor 60 mg tablet (Brilinta) 60 mg PO BID 09/17/23 11/08/24 10/31/23 History evolocumab 140 mg/mL subcutaneous 140 mg subcut .q2w 10/27/23 09/26/24 Unknown History pen injector (Repatha SureClick) Allergies Allergy/AdvReac Type Severity Reaction Status Date / Time [id number] Reductase AdvReac Intermediate Muscle Pain Verified 02/12/25 08:05 Inhibitor Review of Systems Review of Systems: CONSTITUTIONAL: Denies body aches, fever, chills EYES: Endorses pain to L eye and FB sensation. Reports photophobia. Denies visual changes. ENT: Denies rhinorrhea, congestion, sore throat, or otalgia. CARDIOVASCULAR: Denies chest pain, palpitations RESPIRATORY: Denies cough or dyspnea. GASTROINTESTINAL: Denies abdominal pain, nausea, vomiting, or diarrhea. SKIN: Denies rash, itching, or wounds. MUSCULOSKELETAL: Denies back pain, joint pain, or myalgia. NEUROLOGIC: Denies headache, numbness, tingling, or weakness. All systems reviewed & are unremarkable except as noted in HPI and below PMFSH Past Medical History Medical History Hypertension Central sleep apnea Obesity (BMI 30-39.9) Personal history of nicotine dependence Vertigo Surgical History Surgical History History of open heart surgery Knee joint replacement status History of heart artery stent History of bilateral knee replacement Family History Family History Father Bladder cancer Heart disease Hx of CABG Mother Heart disease Hx of CABG Social History Social History Social History: Smoke cigars, not often Smoking packs per day: 1 Smoking cigarettes per day: 20.0 Years smoked: 35 Smoking pack-years: 35.00 Smoking status: Former smoker Tobacco type: cigarettes Second hand tobacco smoke exposure: No Additional smoking assessment comments: Not currently smoking cigs, occasional cigars Alcohol intake: current Drinks per week: 12 Alcohol use details: beers Substance use: never Substance use type: does not use Current Housing: Decline to Answer Concerned About Future Housing: Decline to Answer Difficulty Paying Gas/Electric Bills: Decline to Answer Difficulty Paying for Meds: Decline to Answer Currently Unemployed: Decline to Answer Education: Decline to Answer Difficulty w/ Childcare or Family Care: Decline to Answer Living arrangements: with family Spiritual care concerns: No Comments At time of signature, I have reviewed and agree with nursing past medical, surgical, social and family history unless otherwise noted. Please see nursing chart for further information. There is no relevant family history pertinent to the presenting complaint. Exam Narrative: GENERAL: Well-appearing HEAD: Normocephalic, atraumatic. EYES: Upon King lamp exam, uptake showed punctate corneal abrasion at the 5 o'clock position of iris. See procedure note. No L conjunctival injection.?EOMI. ?Lid eversion with no FB. Lids and lashes normal. R eye normal. CHEST: ?Clear to auscultation. HEART: Regular rate and rhythm. ABDOMEN: Soft, nontender, nondistended SKIN: Warm, dry, no rash. ?Normal skin turgor. NEURO: No focal deficits. Alert and oriented x3 PSYCH: ?Normal affect. Course Course Level of Care: Express Care Visit Vital Signs Vital signs: Vital Signs Temperature 97.6 F 02/12/25 08:10 Pulse Rate 58 L 02/12/25 08:10 Respiratory Rate 16 02/12/25 08:10 Blood Pressure 129/48 L 02/12/25 08:10 Pulse Oximetry 100 02/12/25 08:10 Oxygen Delivery Room Air 02/12/25 08:10 Temperature 97.6 F 02/12/25 08:10 Pulse Rate 58 L 02/12/25 08:10 Respiratory Rate 16 02/12/25 08:10 Blood Pressure 129/48 L 02/12/25 08:10 Pulse Oximetry 100 02/12/25 08:10 Oxygen Delivery Room Air 02/12/25 08:10 Reviewed Procedures Other Procedure Procedure 1: Other Procedure: Left eye was anesthetized with 1 drop of tetracaine and anesthesia was achieved. The eye was flushed with eye wash. Lid was inverted and examined. Moistened Qtip was used to sweep underneath the upper eyelid with no foreign bodies resu lting. Cornea was dyed with fluorescein and 1 punctate corneal abrasions noted. No ulcerations were noted. Pt tolerated procedure well. MDM - Eye Problem MDM Narrative Medical decision making narrative: Discussed physical exam findings. Tetanus up to date. Polytrim prescription given. Advised supportive measures and signs/symptoms to go to the ER. Pt is appropriate for outpt treatment and follow up. Differential Diagnosis Differential diagnosis: Likely corneal abrasion, corneal ulcer and other (foreign body in eye.) Critical Care Time Critical Care Time Critical Care Time: No Discharge Plan Discharge Clinical Impression: Corneal abrasion Qualifiers: Encounter type: initial encounter Laterality: left Qualified Code(s): S05.02XA - Injury of conjunctiva and corneal abrasion without foreign body, left eye, initial encounter Patient Disposition: Home Condition: Stable Instructions: Corneal Abrasion (ED) Additional Instructions: Use eyedrops as prescribed. Corneal abrasions will usually heal in 3 days. You can wear sunglasses or stay in low light to avoid light sensitivity. Do not touch or rub your eye. Use over the counter lubricating eye drops as needed for irritation Do not wear contact lenses until issue is resolved You may take Tylenol or ibuprofen for pain Follow-up with PCP or match up worker if condition is not improving in 2-3days. [facility] [phone] [facility] [phone] [facility] [phone] [facility] [phone] Patient Language: Turkmen Prescriptions: New polymyxin B sulf-trimethoprim 10,000 unit- 1 mg/mL drops 1 drp LEFT EYE QID 5 Days Qty: 10 0RF Rx Instructions: while awake; do not exceed 6 doses in 24 hours No Action aspirin [Adult Aspirin Regimen] 81 mg tablet,delayed release (DR/EC) 81 mg PO DAILY cholecalciferol (vitamin D3) 50 mcg (2,000 unit) capsule 50 mcg PO DAILY metoprolol tartrate 25 mg tablet 12.5 mg PO BID Repatha SureClick 140 mg/mL pen injector 140 mg subcut .q2w Brilinta 60 mg tablet 60 mg PO BID lisinopril 40 mg tablet 40 mg PO DAILY ferrous sulfate 325 mg (65 mg iron) tablet 325 mg PO DAILY vitamin B complex [B Complex-Vitamin B12] Tablet 1 tablet PO DAILY ascorbate calcium (vitamin C) 500 mg tablet 500 mg PO DAILY tamsulosin 0.4 mg capsule 0.4 mg PO QHS Qty: 30 0RF Follow-up/Referrals: Miguel Vizcaino MD [Primary Care Provider] - Time of Disposition: 08:37
== END 2025-02-12 08:38 | disposition home or self-care (01) ==
PROVIDERS: PCP Family Medicine
DX: S05.02XA Injury of conjunctiva and corneal abrasion without foreign body, left eye, initial encounter (principal); X58.XXXA Exposure to other specified factors, initial encounter; Y93.H2 Activity, gardening and landscaping; I10 Essential (primary) hypertension; E66.9 Obesity, unspecified; Z68.32 Body mass index [BMI] 32.0-32.9, adult; Z95.5 Presence of coronary angioplasty implant and graft; Z96.653 Presence of artificial knee joint, bilateral
CPT/HCPCS: 99213; A9270; G0463

== ENCOUNTER 2025-06-16 10:05 | Outpatient (CLI) | payer MEDICARE, SELFPAY ==
--- NOTE | ~2025-06-16 | CT_ITS ---
EXAMINATION:CT lung screening DATE: 06/16/2025 10:25 INDICATION: Personal history of nicotine dependence. TECHNIQUE: Computed tomography (CT) of the chest was performed without intravenous contrast. Automated exposure control and iterative reconstruction technique were employed. The dose-length product (DLP) was 190.38 mGy-cm. COMPARISON: Chest CT 10/06/2023 FINDINGS: The lungs demonstrate mild atelectasis. There is a 3 mm nodule in right upper lobe. There are two 3 mm nodules in right middle lobe. Calcified bilateral lung nodules and calcified right hilar lymph nodes are consistent with old edematous disease. No pleural effusion. The heart size is normal. There are coronary artery calcifications. There are changes of coronary artery bypass grafting. There is a small sliding hiatal hernia. There is mild bilateral gynecomastia. There are bridging endplate osteophytes at multiple levels in the spine, consistent with diffuse idiopathic skeletal hyperostosis (DISH). There is mild chronic anterior wedging of multiple thoracic vertebral bodies. IMPRESSION: 1. Lung-RADS category 2: Benign appearance or behavior. Continue annual screening with noncontrast low-dose chest CT in 12 months. Reviewed, dictated and finalized at location E. IMPRESSION: 1. Lung-RADS category 2: Benign appearance or behavior. Continue annual screeni ng with noncontrast low-dose chest CT in 12 months.
--- OUTSIDE RECORDS SUMMARY | 2025-06-16 10:37 | XMS_ITS | Clinical Summary ---
Author Organization [facility] Address [address] [place] [address] Care Team Providers Care Educational Technician Name Role Phone Unavailable Primary Care Provider Unavailabl e Source Comments [facility],non-owned Affiliates and Associated Physician Practices is amultiple site organization consisting of ambulatory clinics and hospital sitesin [place], [place], [place] and [place]. This disclosure is being madepursuant to the Care Everywhere program and may not contain all information available regarding this patient. 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
--- OUTSIDE RECORDS SUMMARY | 2025-06-16 10:37 | XMS_ITS | Clinical Summary ---
Author Organization [facility] Kimberly Glynn Address [address] [place] [address] Care Team Providers Care Knot Picker Cloth Name Role Phone Miguel Vizcaino MD Primary Care Provider [phone] Allergies No known active allergies Medications Brilinta [...] (1 of 2) 2005 INFLUENZA VACCINE (#1) 2025 RSV VACCINE (60+ or ) (1 - 1-dose 75+ series) 2030 Insurance MEDICARE PART A AND B [facility] [employer] Care Teams Knot Picker Cloth Relationship Specialty Start Date End Date Miguel Vizcaino MD PCP - General Family Practice 01/28/23
--- OUTSIDE RECORDS SUMMARY | 2025-06-16 10:37 | XMS_ITS | Clinical Summary ---
Author Organization [facility] Address [address] [place] [id number] Care Team Providers Care Washer And Crusher Tender Name Role Phone Unavailable Primary Care Provider [...] Td Vaccines ( 1 - Tdap) 1974 Pneumococcal Vaccine: 50+ Ye ars (1 of 1 - PCV) 2005 Zoster Vaccines (1 of 2) 2005 Annual Medicare Wellness Visit 2020 COVID-19 Vaccine (1 - 2024-2 6 season) 2025 Influenza Adult (#1) 2025 RSV Immunization or 60+ Years (1 - 1-dose 75+ series) 2030 Hepatitis A Vaccines Aged Out No long er eligible based on patient's age to complete this topic Meningococcal B Vaccine Aged Out No l onger eligible based on patient's age to complete this topic Meningococcal Vaccine Aged Out No armond abby eligible based on patient's age to complete this topic RSV Immunizations Under 20 Months Aged Out No longer eligible based on patient's age to complete this topic Insurance MEDICARE [facility]
--- OUTSIDE RECORDS SUMMARY | 2025-06-16 10:37 | XMS_ITS | Clinical Summary ---
Author Organization [facility] [address] Address [address] [place] [address] Care Team Providers Care Fish Inspector Name Role Phone Dulce Arreguin MD Unavailable [phone] Reed Glass MD Unavailable Miguel Vizcaino MD Primary Care Provider [phone] Allergies Active Allergy Reactions Criticality Noted Date Comments Xucfctb-Mkf-Dyk Reductase Inhibitors Muscle pain High 12/16/2021 Pravastatin, atorvastatin Medications aspirin 81 mg enteric coated tabletIndication s:Myocardial Reinfarction Prevention,preve ntion of thrombosis Take 1 tablet (81 mg total) by mouth nightly Active cholecalciferol (VITAMIN D-3) 1,000 unit capsule Take 1 capsule (1,000 Units total) by mouth every morning Active iron bis-gly/FA/C/B12 /Ca/succ (IRON-150 ORAL) Take 250 mg by mouth every morning Active cyanocobalamin (Vitamin B-12) 500 mcg tablet Take 1 tablet (500 mcg total) by mouth every morning Active acetaminophen (TYLENOL) 325 mg tablet Take 2 tablets (650 mg total) by mouth every 6 (six) hours as needed for headaches 30 tablet 07/07/20 22 Active evolocumab (Repatha SureClick) 140 mg/mL pen injector Inject 1 mL (140 mg total) under the skin every 14 (fourteen) days 2 mL 11 08/18/19 25 Active Additional Information Patient taking differently:140 mg subcutaneous Every 14 days,Indications: hypercholesterolemia, Reported on 06/05/2025 lisinopriL (PRINIVIL,ZESTRI L) 40 mg tablet TAKE 1 TABLET BY MOUTH DAILY 90 tablet 1 03/31/20 Active Additional Information Patient taking differently:40 mg oralEvery morning, Indications: hypertension, Reported on 06/05/2025 metoprolol tartrate (LOPRESSOR) 25 mg immediate release tablet TAKE 1/2 OF A TABLET (12.5 MG TOTAL) BY MOUTH TWICE A DAY 90 tablet 2 04/04/20 Active Additional Information Patient taking differently: 12.5 mg oral 2 times daily, Indications: coronary artery disease, hypertension, Reported on 06/05/2025 Brilinta 60 mg tabletIndication s:Coronary artery disease of [place] artery of [place] heart with stable angina pectoris TAKE 1 TABLET BY MOUTH 2 TIMES A DAY. 180 tablet 1 04/14/20 Active Additional Information Patient taking differently:60 mg oral 2 times daily,Indications: Myocardial Reinfarction Prevention, Reported on 06/05/2025 mupirocin (BACTROBAN) 2 % ointment Apply topically 2 (two) times a day for 5 days APPLY TO NOSTRILS TWICE A DAY FOR 5 DAYS PRIOR TO SURGERY. 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 Other specified joint disorders, left knee 11/14 Chest pain 07/29/2021 Overview (07/29/2021): Added automatically from request for surgery [id number] Tobacco use 10/28/2019 Essential hypertension 10/28/2019 Family history of premature CAD 10/28/2019 Hyperlipidemia LDL goal <70 10/28/2019 Coronary artery disease of n ative artery of [place] heart with stable angina pectoris 10/28/2019 Central sleep disordered breathing 03/07/2015 Obstructive sleep apnea syndrome 03/07/2015 Encounters Date Type Department Care Team Description 06/05/2025 9:00 AM CDT Pre-Admission Testing [facility] Pre-Anesthesia Testing [address] [id number] Pre-op testing (Primary Dx) 06/05/2025 8:20 AM CDT Lab [facility] [address] [address] Pre-op testing; Failure of total knee replacement, initial encounter; Disorder of cartilage, unspecified; Preop examination 06/02/2025 Orders Only [facility] [address] [facility] [address] [place] [address] Reno Turcios MD 04/13/2025 11:30 AM CDT Office Visit [facility] Cardiology [address] [place] [phone] Reed Glass MD Coronary artery disease of [place] artery of [place] heart with stable angina pectoris (Primary Dx); Essential hypertension; Hyperlipidemia LDL goal <70; Obstructive sleep apnea syndrome; Tobacco use; Preop cardiovascular exam from Last 3 Months Surgical History Surgery Date Site/Laterality Comments DC TONSILLECTOMY PRIMARY/SECONDARY <AGE 12 Tonsillectomy - (Added by TW Conv) JOINT REPLACEMENT Bilateral TKA (right 2014, Left 2013) LASIK 08/17/2014 - 08/16/2015 CARDIAC CATHETERIZATION stent x 1 CORONARY ARTERY BYPASS GRAFT 06/07 Medical History Medical History Date Comments Personal history of other en docrine, nutritional and metabolic disease History of hyperchol esterolemia - (Added by TW Conv) Atherosclerotic heart diseas e of [place] coronary artery without angina pectoris Coronary artery disease - (A dded by TW Conv) Sleep apnea H/O angina pectoris 2006 CAD (coronary artery disease) Hypertension Hyperlipidemia Arthritis Family History Medical History Relation Name Comments Parkinsonism Brother Heart disease Father w/CABG Hypertension Father Family history of hypertension - (Added by TW Conv) Heart disease Mother w/CABG Hypertension Mother Family history of hypertension - (Added by TW Conv) Heart disease Sister 2 Anesthesia problems Neg Hx Relation Name Status Comments Brother Alive Father Alive Mother Alive Sister 1 Alive Sister 2 Alive Sister 3 Alive Social History Tobacco Use Types Packs/Day Years Used Date Smoking Tobacco: Former Cigarettes 1 52.8 S tarted: 1973 Cigars Quit: 04/17/20 25 Smokeless Tobacco: Never Tobacco Cessation:Counseling Given: Not Answered Comments:quit cigarettes in 2020; [...] more drinks on one occasion? Never 08/29/2021 Personal Safety Answer Date Recorded Have you ever been in or are you currently in a harmful physical or emotional relationship or is someone making you feel afraid or unsafe? 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 Gender Identity Not on file Sexual Orientation Not on file Obstetrics History Last Filed Vital Signs Vital Sign Reading Time Taken Comments Blood Pressure 146/66 06/05/2025 8:48 AM CDT Pulse 75 06/05/2025 8:48 AM CDT Temperature 36.8 C (98.2 F) 07/07/2022 12:58 PM PATTERN ASSEMBLER Respiratory Rate 18 06/05/2025 8:48 AM CDT Oxygen Saturation 99% 06/05/2025 8:48 AM CDT Inhaled Oxygen Concentration - - Weight 105.7 kg (233 lb) 06/05/2025 8:48 AM CDT Height 177.8 cm (5' 10) 06/05/2025 8:48 AM CDT Body Mass Index 33.43 06/05/2025 8:48 AM CDT Plan of Treatment Upcoming Encounters Date Type Department Care Team (Late st Contact Info) Description 06/29/2025 2:50 PM PATTERN ASSEMBLER Hospital Encounter [facility] [address] [place] [address] Reno Turcios MD [address] [place] [address] 06/29/2025 2:50 PM PATTERN ASSEMBLER Anesthesia Event [facility] [address] [address] [address] Whitney Galvan NP [address] [facility] [id number] [place] [address] 06/29/2025 2:50 PM PATTERN ASSEMBLER - 06/29/2025 4:55 PM PATTERN ASSEMBLER Surgery [facility] [address] [address] [address] Reno Turcios MD [address] [place] [address] REVISION ARTHROPLASTY TOTAL KNEE - DEPUY Scheduled Procedures Name Priority Associated Diagnoses Date/Ti me REVISION ARTHROPLASTY TOTAL KNEE - DEPUY Failure of total knee replacement, initial encounter Other specified joint disorders, left knee 06/29/2025 2:50 PM PATTERN ASSEMBLER Health Maintenance Due Date Last Done Comments Colon Cancer Screening-Colonoscopy 1955 Depression Screening 1955 Hepatitis C Screening 1955 Prostate Cancer Screening-PSA 1955 DTaP/Tdap/Td Vaccine (1 - Tdap) 1966 Hepatitis B Screening 1973 Pneumococcal vaccine 65+ (1 of 2 - PCV) 1974 Lung Cancer Screening 2005 Abdominal Aortic Aneurysm (A AA) Screen 2020 Well Visit 65+ 2020 Covid-19 Vaccine (5 - 2024-2 6 season) 2025 05/12/2023, 11/09/2020, 10/17/2020, Additional history exists Influenza Vaccine (#1) 2025 , 07/14/2022, 05/30/2019, Additional history exists Fall Risk Assessment 06/05/2026 06/05/2025 Zoster Vaccine Completed 09/14/2019, 05/30/2019 Medical Devices Implanted Type Area Manager Information Device Identifier Shelf Expiration Date Model / Serial / Lot [employer] [id number] Synergy Xd Monorail 3mm 24mm 144cm Delivery System 1 Access Port - [id number] Implanted:Qty: 1 on 08/29/2021 by Kimo George MD at [facility] Functional Neuromodulation Jarrett 03/08/2023 [id number] / / [employer] Mynx Control 6-7fr 2 Mode Balloon Catheter Sealant Lock Syringe [id number] - [id number] Implanted:Qty: 1 on 06/06/2022 by Kimo George MD at [facility] [employer] 04/16/2024 [id number] / / [id number] Procedures Procedure Name Priority Date/Time Associated Diagnosis Comments EGFR Routine 06/05/2025 10:24 AM CDT Failure of total knee replacement, initial encounter TYPE AND SCREEN 14 DAY Routine 10:24 AM CDT Pre-op testing COTININE, SERUM Routine 06/05/2025 10:24 AM CDT Preop examination VITAMIN D 25 HYDROXY Routine 06/05/2025 10:24 AM CDT Failure of total knee replacement, initial encounter Disorder of cartilage, unspecified COMPREHENSIVE METABOLIC PANEL Routine 06/05/2025 10:24 AM CDT Failure of total knee replacement, initial encounter CBC WITHOUT DIFFERENTIAL Routine 06/05/2025 10:24 AM CDT Pre-op testing NICOTINE METABOLITE SCREEN, URINE Routine 06/05/2025 10:24 AM CDT Preop examination ECG 12-LEAD Routine 06/05/2025 9:23 AM CDT Pre-op testing POCT LIPID PANEL Routine 04/13/2025 11:5 0 AM CDT Coronary artery disease of [place] artery of [place] heart with stable angina pectoris Hyperlipidemia LDL goal <70 from Last 3 Months Results * TYPE AND SCREEN 14 DAY (06/05/2025 10:24 AM CDT) Naida, indirect Negative [facility] ABO Rh O Negative [facility] Blood 06/05/2025 10:2 4 AM CDT 06/05/2025 10:45 AM CDT Narrative [facility] - 06/05/2025 11:50 AM CDT Has the patient had Daratumumab or Isatuximab in the past 6 months?->Unknown Is this test being ordered in advance for a procedure?->Yes Expected date of procedure:->06/29/25 Has the patient been transfused in the past 3 months?->No us Whitney Galvan NP LAB BLOOD BANK TEST ORDERABLES Final Result Performing Organization Address City/[facility]/ZIP Co de Phone Number [facility] [address] [facility]. [place] [address] * eGFR (06/05/2025 10:24 AM CDT) eGFR 81 >=60 mL/min/1. 73 m2 Comment: Interpretive Data Reference Interval Normal >/= 90 mL/min/1.73m2 Mildly decreased* 60 - 89 mL/min/1.73m2 Mildly to moderately decreased 45 - 59 mL/min/1.73m2 Moderately to severely decreased 30 - 44 mL/min/1.73m2 Severely decreased 15 - 29 mL/min/1.73m2 Kidney Failure < 15 mL/min/1.73m2 *Relative to young adult level Estimated glomerular filtration rate is determined by the 2020 CKD-EPI equation recommended by the National Kidney Foundation (A Unifying Approach to GFR Estimation: Recommendations of the NKF-ASK Task Force on Reassessing the Inclusion of Race in Diagnosing Kidney Disease, JASN 2020). The CKD-EPI equation should not be used for patients with unstable renal function and has not been validated in children and those over 70. Current interpretive data was last reviewed 2021. Blood 06/05/2025 10:2 4 AM CDT 06/05/2025 10:45 AM CDT us Reno Turcios MD LAB BLOOD ORDERABLES Cara l Result [facility] [address] [facility]. [facility] [place] [address] * Cotinine level (06/05/2025 10:24 AM CDT) Pathologist [facility] Nicotine <3.0 <3.0 ng/mL [place] ref Lab Cotinine, quant, sr <3.0 <3.0 ng/mL [facility] Comment: ADDITIONAL INFORMATION This test was developed and its performance characteristics determined by [facility] in a manner consistent with CLIA requirements. This test has not been cleared or approved by the U.S. Food and Drug Administration. Test Performed by: [place] [address] Warp Knit Operator: Susana Marsh Ph.D.; CLIA# [id number] Blood 06/05/2025 10:2 4 AM CDT 06/05/2025 10:45 AM CDT us Reno Turcios MD LAB BLOOD ORDERABLES Cara l Result Performing Organization Address [facility] de Phone Number [facility] [address] [facility] [place] [address] [facility] * Vitamin D 25 hydroxy (06/05/2025 10:24 AM CDT) Pathologist [facility] Vitamin D 25-OH 38 30 - 80 ng/mL Blood 06/05/2025 10:2 4 AM CDT 06/05/2025 10:45 AM CDT us Reno Turcios MD LAB BLOOD ORDERABLES Cara l Result Performing Organization Address [facility] Co de Phone Number [facility] [address] [facility]. [facility] [place] [address] * (ABNORMAL) CBC without differential (06/05/2025 10:24 AM CDT) Pathologist [facility] WBC 7.45 3.80 - 9.90 K/cumm Hgb 13.1 13.0 - 17.5 g/dL [facility] Hct 40.6 38.9 - 50.3 % [facility] Plt 381 150 - 400 K/cumm [facility] MPV 9.5 9.1 - 12.3 fL [facility] RBC 4.08(L) 4.30 - 5.80 M/cumm [facility] MCV 99.5(H) 81.3 - 96.4 fL [facility] MCH 32.1 27.1 - 33.3 pg [facility] MCHC 32.3 32.3 - 35.7 g/dL [facility] RDW CV 13.0 11.1 - 14.9 % [facility] RDW SD 47.7 35.7 - 48.1 fL [facility] NRBC abs 0.00 0.00 - 0.01 K/cumm [facility] Blood 06/05/2025 10:2 4 AM CDT 06/05/2025 10:45 AM CDT us Whitney Galvan FELLER SEAM OPERATOR LAB BLOOD ORDERABLE S Final Result [facility] [address] [facility]. Department of Laboratories [place], [place] [id number] * Comprehensive metabolic panel (06/05/2025 10:24 AM CDT) Pathologist [facility] Sodium 141 135 - 145 mmol/L Potassium, pl 4.9 3.3 - 4.9 mmol/L [facility] Chloride 106 97 - 110 mmol/L [facility] CO2 24 22 - 32 mmol/L [facility] Anion gap 11 2 - 15 mmol/L [facility] BUN 22 6 - 25 mg/dL [facility] Creatinine 1.01 0.80 - 1.30 mg/dL [facility] Glucose 101 70 - 199 mg/dL [facility] Comment: Interpretive Data Fasting glucose >/= 126 mg/dl is diagnostic for diabetes. Fasting is defined as no caloric intake for at least 8 hours. Fasting glucose between 100 mg/dl to 125 mg/dl is diagnostic of prediabetes. In a patient with classic symptoms of hyperglycemia or hyperglycemic crisis, a random glucose >/= 200 mg/dl is diagnostic for diabetes. In the absence of unequivocal hyperglycemia, results should be confirmed by repeat testing. The classification and Diagnosis of Diabetes Diabetes Care 2021; 46: S19-S40. Current interpretive data was last revised 2022. Calcium 9.7 8.5 - 10.3 mg/dL [facility] Bilirubin, total 0.5 0.1 - 1.2 mg/dL [facility] Protein, pl 7.5 6.5 - 8.5 g/dL [facility] Albumin 4.5 3.5 - 5.0 g/dL [facility] Alk phos 87 40 - 130 Units/L [facility] ALT 22 7 - 55 Units/L [facility] AST 19 10 - 50 Units/L [facility] Blood 06/05/2025 10:2 4 AM CDT 06/05/2025 10:45 AM CDT Reno Turcios MD LAB BLOOD ORDERABLES Cara barrios Result [facility] [address] [facility]. [place] [address] * Nicotine metabolite screen, urine (06/05/2025 10:24 AM CDT) Pathologist [facility] Nicotine, ur <5.0 <5.0 ng/mL [place] [facility] Cotinine, ur <5.0 <5.0 ng/mL [facility] Anabasine ur <2.0 <2.0 ng/mL [facility] Comment: ADDITIONAL INFORMATION This test was developed and its performance characteristics determined by [facility] in a manner consistent with CLIA requirements. This test has not been cleared or approved by the U.S. Food and Drug Administration. Test Performed by: [facility] [address] [place] [address] Warp Knit Operator: Susana Marsh Ph.D.; CLIA# [id number] Nornicotine, ur <2.0 <2.0 ng/mL [facility] Urine 06/05/2025 10:2 4 AM CDT 06/05/2025 11:25 AM CDT Reno Turcios MD LAB URINE ORDERABLES Cara l Result Performing Organization Address City/[facility] Co de Phone Number [facility]ON [facility] [address] [facility] [place] [address] [place] ref Lab * ECG 12 lead (06/05/2025 9:23 AM CDT) 06/05/2025 9:23 AM CDT Narrative [facility] - 06/05/2025 12:10 PM CDT Vent Rate: 55 bpm RR Interval: 1082 msec DC Interval: 0 msec QRS Duration: 85 msec QT Interval: 425 msec QTC Interval: 414 msec P-R-T [place]: 0 - 18 - 51 degrees IMPRESSION: Sinus bradycardia with APDs. Borderline LVH by voltage criteria. Electronically Signed By: Arielle Medellin M.D. Whitney Galvan FELLER SEAM OPERATOR ECG ORDERABLES Fin al Result Performing Organization Address [facility] Co de Phone Number [facility] [employer] [facility] * POCT lipid panel (04/13/2025 11:50 AM CDT) Cholesterol, POC 149 <200 MG/DL HDL, POC 46 >=40 mg/dL Triglycerides, POC 131 <=149 mg/dL LDL Cholesterol POC 77 <=129 mg/dL Chol/HDL Ratio, POC 1.7 NONE Non-HDL Cholesterol, POC 103 NONE mg/dL Cholesterol Total, POC 149 30 - 199 mg/dL Capillary blood 04/13/2025 1 1:50 AM CDT us Reed Glass MD POINT OF CARE TEST ORDERA BLES Final Result from Last 3 Months Insurance AETNA MEDICARE GOLD AETNA MEDICARE GOLD AETNA MEDICARE GOLD [facility] MEDICARE Advance Directives For more information, please contact: [phone] * Full Code (Latest Code Status on File) Date Activated Date Inactivated Comments 07/01/2022 2:42 PM 07/07/2022 9:45 PM Care Teams Fish Inspector Relationship Specialty Start Date End Date Miguel Vizcaino MD [address], [address] [address] PCP - General Family Practice 02/06/23 Dulce Arreguin MD Surgeon Cardiothoracic Surgery 07/07/22 Reed Glass MD [address], [address] [place] [address] Consulting Physician Cardiology 07/07/22
== END 2025-06-16 10:06 | disposition home or self-care (01) ==
PROVIDERS: PCP Family Medicine; Visit Provider Family Medicine
DX: Z12.2 Encounter for screening for malignant neoplasm of respiratory organs (principal); Z87.891 Personal history of nicotine dependence
CPT/HCPCS: 71271